=== PATIENT | male | born 1930 | race Caucasian/White ===

== ENCOUNTER → 2016-08-17 | Outpatient (CLI) | payer MEDICARE ==
[~2016-08-17] MED LIST: ADVAIR 250/501 EA INH; ADVAIR 500/501 E1 INH; ADVAIR DISKUS1 DS1 IH; ADVAIR DISKUS1 DSK IH; ALBUTEROL0.09 MG/A2 IH; ALLOPURINOL100 MG PO; ANTIVERT25 MG PO; ARANESP0.06 MG/ML IJ; ASPIR 8181 MG PO; Albuterol Sulfat3 M1 IH; B COMPLETE1 EACH PO; BACTROBAN OINT0.9 GM T; BACTROBAN OINT22 GM T; BAL B-1001 EACH PO; BALANCE B-1001 TA1 PO; CARDURA4 MG PO; CENTRUM SILVER1 EAC3 PO; CENTRUM SILVER1 EACH PO; COREG12.5 MG PO; COREG25 MG PO; COREG3.125 MG PO; COREG6.25 MG PO; COUMADIN2 MG PO; COUMADIN2.5 M1 PO; Coumadin2.5 MG PO; DIGOX0.125 MG PO; DOBUTAMINE250 MG/250 IV; DOXYCYCLINE100 M3 PO; DUONEB 3 MG/3 ML3 M1; DUONEB 3 MG/3 ML3 M1 INH; FEROSUL220 MG/51 PO; FERROUS SU220 MG/52 PO; FLAGYL500 MG PO; FLOMAX0.4 MG PO; FORMOTEROL FUMA; FUROSEMIDE40 MG PO; HECTOROL1 MCG PO; HUMULIN 70/30 710 M1 SC; HUMULIN N100 U/ML SC; HYDROCODONE BIT1 T11 PO; HYDROCODONE BIT1 T20 PO; Ipratropium Brom3 ML IH; Ipratropium Brom3 ML INH; K-DUR 1010 MEQ PO; K-TAB10 MEQ PO; KLOR-CON 1010 ME1 PO; LANOXIN0.125 MG PO; LASIX20 MG PO; LASIX40 MG PO; LECITHIN; LEXAPRO10 MG PO; LIPITOR20 MG PO; LISINOPRIL2.5 MG; LISINOPRIL2.5 MG PO; LOMOTIL 0.025 M1 TAB PO; MULTIPLE VITAMI1 CAP; MULTIPLE VITAMI1 CAP PO; MULTIPLE VITAMI1 TA3 PO; Meclizine25 MG PO; NEURONTIN300 MG PO; NOVAPLUS SOLU-M40 MG IV; NOVOLOG 70/30 M10 ML SQ; PANTOPRAZOLE SO40 MG PO; PERCOCET 325 MG1 TA2 PO; POTASSIUM CHLO10 ME5 PO; PRAVACHOL40 MG PO; PREDNISONE IN5 MG/ML; PREDNISONE5 MG PO; PRELONE15 MG/5 ML PO; PRILOSEC20 M1 PO; PRILOSEC20 MG PO; PROTONIX40 MG PO; PROVENTIL0.09 MG/AC IH; SANTYL250 U/GM T; SONATA10 MG PO; SYMBICORT1 AE1 INH; TAMSULOSIN HCL0.4 MG PO; TYLENOL325 M2 PO; ULORIC40 MG PO; VANCOMYCIN HCL1 GM IV; VIBRAMYCIN100 MG PO; VICODIN 500 MG-1 TAB; VITAMIN B1001 TAB PO; VITAMIN D-32000 UNI1 PO; VITAMIN D-32000 UNIT PO; VITAMIN D2000 IU PO; VITAMIN D32000 UNIT PO; VITAMIN D50000 IU PO; ZYLOPRIM100 MG PO; [UNRECOGNIZED DRUG - OTHER] PO; [UNRECOGNIZED DRUG - OTHER] PO
--- NOTE | ~2016-08-17 | PR ---
[place], [place] PROGRESS NOTE NAME: ARIANNA MUSTAFA [facility] #: [id number] UNIT #: [id number] ROOM: DOCTOR: CARLTON BORJAS DPM BIRTHDATE: [birth year] DOS: 08/17/2016 SUBJECTIVE: The patient is seen for left great toe ulceration as well as fourth left toe ulceration. The patient was seen at [facility] by vascular surgeon. I did receive those notes and unfortunately the patient is not bypassable and with the severity of his arterial sclerosis, it is felt that amputation would only lead to bigger and worse problems. PHYSICAL EXAMINATION: It is noted that the left great toe is stable. There is a stable gangrenous eschar measuring 1.3 x 1.1 x 0.1 cm. Left fourth toe webspace, there is a small gangrenous area at 0.5 x 0.4 x 0.1 cm, again. Both are dry, stable and uninfected at this time. DP, PT pulses are not palpable. The patient has very limited vascular flow in this leg, which was confirmed by his most recent Vascular Surgery Intervention appointment. PLAN: 1. Evaluate. 2. Continue to paint the areas with Betadine. We are going to move the patient into palliative care or we see him and check the areas once monthly. The patient is to call if any problems arise in the meantime, but unfortunately with lack of blood flow to the area, there is not much more we can do for him at this time. CARLTON BORJAS DPM CM:PNTRANS [id number] CARLTON BORJAS DPM 08/18/16 0010 interface
== END | disposition home or self-care (01) ==
LOC: WOUNDCARE 02:42
DX: E11.621 Type 2 diabetes mellitus with foot ulcer (principal); L97.521 Non-pressure chronic ulcer of other part of left foot limited to breakdown of skin; I70.262 Atherosclerosis of native arteries of extremities with gangrene, left leg; E11.69 Type 2 diabetes mellitus with other specified complication; M86.372 Chronic multifocal osteomyelitis, left ankle and foot; E11.52 Type 2 diabetes mellitus with diabetic peripheral angiopathy with gangrene

== ENCOUNTER 2016-08-22 17:00 | Inpatient (IN) | payer MEDICARE ==
[2016-08-22] VITALS (13 sets, daily range): BP systolic 86–140; BP diastolic 30–84
[~2016-08-22] VITALS: Ht 182.9 cm; Wt 66.0 kg
--- NOTE | ~2016-08-22 | DS ---
[place], [place] DISCHARGE SUMMARY NAME: ARIANNA MUSTAFA [facility] #: [id number] UNIT #: [id number] ROOM: 409 DOCTOR: SHIVA HUYNH MD BIRTHDATE: [birth year] DOS: 08/24/2016 DIAGNOSES: 1. Diarrhea from viral gastroenteritis. 2. Hypotension from diarrhea. 3. Chronic atrial fibrillation. 4. Dilated cardiomyopathy without any evidence of congestive heart failure, compensated. 5. Chronic renal failure. 6. Hypokalemia. 7. Anemia of chronic disease. 8. 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 MEDICATIONS ON DISCHARGE: Will be the same as on admission, no new prescriptions were given. HOSPITAL COURSE: This patient is 85 years old, comes in after having multiple diarrheal bowel movements at home. He was found to be hypotensive. After being seen in the Emergency Room, was placed on vigorous IV hydration. His labs did show some slight worsening of his kidney functions from his baseline. He does have chronic renal failure with stage 4. His digoxin and Coreg were discontinued initially. Rest of his medications were continued. The patient did not have any diarrheal bowel movements after he got admitted. After admission, he has had 2 small BMs which is not diarrheal. C. Diff titers were sent and we do not have the results yet. The patient is stable and is not having any complaints. Blood pressures have improved. He is eating well this morning. So the plan will be to discharge him to home and follow up with visiting nurses at home. SHIVA HUYNH MD CM:DISCHARG [id number] SHIVA HUYNH MD 08/24/16 1052 interface
--- NOTE | ~2016-08-22 | PR ---
[place], [place] PROGRESS NOTE NAME: ARIANNA MUTSAFA [facility] #: [id number] UNIT #: [id number] ROOM: 409 DOCTOR: SHIVA HUYNH MD BIRTHDATE: [birth year] DOS: 08/24/2016 He is upset about his dinner yesterday, but he does not have any complaints of diarrhea. He has only had two bowel movements since he got admitted. PHYSICAL EXAMINATION: VITAL SIGNS: Blood pressure is 92/40, pulse of 74, respirations 18, temperature 97.4. LUNGS: Diminished breath sounds, clear. HEART: Irregular. ABDOMEN: Obese, soft, nontender. EXTREMITIES: Without any edema. LABORATORY DATA: This morning, glucose 78, BUN 54, creatinine 1.84, sodium 144, GFR 35, potassium 3.4, chloride 114, and bicarbonate 23. WBC count is 5.2, hemoglobin 9.4. ASSESSMENT AND PLAN: 1. Hypotension from diarrhea, which has resolved. His home medications were on hold. 2. Diarrhea, most likely viral gastroenteritis, which has resolved. C. diff titers were sent. We do not have any results back, but the patient has had no diarrhea and he is not on any antibiotics. 3. Chronic atrial fibrillation on digoxin, Coreg, and Coumadin, which are being continued. 4. Hypokalemia. Supplementation will be ordered. 5. Poorly healing vascular ulcers of the left foot. Continue supportive and symptomatic care at home. We will discharge him today. He does not need any IV fluids and plan is to continue his home medications and have his visiting nurse see him at home. [place], [place] PROGRESS NOTE NAME: ARIANNA MUSTAFA [facility] #: [id number] UNIT #: [id number] ROOM: 409 DOCTOR: SHIVA HUYNH MD BIRTHDATE: [birth year] SHIVA HUYNH MD CM:PNTRANS [id number] SHIVA HUYNH MD 09/27/16 1045 interface
--- NOTE | ~2016-08-22 | WRIGHTHP ---
[place], [place] PATIENT HISTORY AND PHYSICAL EXAM NAME: ARIANNA MUSTAFA [facility] #: [id number] UNIT #: [id number] ROOM: 409 DOCTOR: SHIVA HUYNH MD BIRTHDATE: [birth year] DOS: 08/22/2016 CHIEF COMPLAINT: The patient presents with complaints of diarrhea. HISTORY OF PRESENT ILLNESS: The patient states that he was doing fine until Tuesday evening, he started having multiple episodes of diarrhea, which lasted throughout the weekend and finally, he decided to come in to the Emergency Room on Tuesday. When he arrived, he was quite hypotensive and started on IV fluids and was admitted. He denies having any chest pains or palpitations, does not have any fever or chills, does not have any abdominal pain, any nausea, any emesis. PAST MEDICAL HISTORY: Significant for; 1. Poorly healing wound of the left big toe, fourth and fifth toes from vascular disease. 2. Cardiomyopathy, dilated. 3. Chronic systolic congestive heart failure. 4. Chronic renal failure. 5. Type 2 diabetes mellitus, diet controlled. MEDICATIONS: He is currently on are Symbicort 160 breathing treatments, allopurinol 100, atorvastatin 20, Coreg 3.125 twice a day, vitamin D 2000 mg b.i.d., digoxin 0.125 daily, Lasix 20 daily, iron 220 daily, [place] 5 daily p.r.n., omeprazole 20 daily, potassium 10 daily, warfarin 2 mg daily. SOCIAL HISTORY: Nonsmoker, does not use any alcohol. He lives at home with his . PHYSICAL EXAMINATION: GENERAL: He is awake and alert and oriented, in no distress at all. VITAL SIGNS: Graphic trend shows that he is afebrile this morning, blood pressure is 110/70, pulse of 76, respirations 14. NECK: Supple. No lymph nodes. LUNGS: Diminished breath sounds. CARDIOVASCULAR: Irregular. ABDOMEN: Soft, scaphoid. EXTREMITIES: Without any edema in the right or left, but in the left big toe, fourth toe and fifth toe shows ischemic ulcers. ASSESSMENT AND PLAN: 1. Diarrhea, possibly from a viral syndrome. Clostridium difficile titers have been ordered. The patient is not being placed on any antibiotics. We will wait for the Clostridium difficile titers to come back. 2. Hypotension, possibly from the multiple bouts of diarrhea that he had. He has been placed on IV fluids. 3. Dilated cardiomyopathy with history of chronic congestive heart failure. We will continue to follow him with IV fluids running. We will make sure that he does not go to congestive heart failure. 4. Chronic renal failure, GFR 30, which is his baseline, slow IV hydration, which should improve with slightly and come back, so it is back down to GFR of [place], [place] PATIENT HISTORY AND PHYSICAL EXAM [facility]: [id number] #: [id number] ROOM: [facility] DOCTOR: SHIVA HUYNH MD BIRTHDATE: [birth year] 35 and BUN is 54, creatinine 1.4. White cell count is normal. Ischemic ulcers or Calazime cream will be ordered since he was told there is nothing more that wound clinic can do for him. SHIVA HUYNH MD CM:HISPHYS:PATIENT HISTORY AND PHYSICAL EXAMINATION 0853 [id number] SHIVA HUYNH MD 10/16/16 0836 interface
--- NOTE | ~2016-08-22 | EKG ---
[place], [place] ELECTROCARDIOGRAM REPORT NAME: ARIANNA MUSTAFA UNIT #: [id number] ROOM: 409 DOCTOR: BELINDA VALDIVIA MD BIRTHDATE: [birth year] DOS: 08/22/2016 TIME: 1756 hours. Underlying rhythm with atrial fibrillation with ventricular pacing at 74 beats per minute. An abnormal ECG. No previous tracing is available for comparison. BELINDA VALDIVIA MD CM:EKGRPT:ELECTROCARDIOGRAM REPORT [id number] 31 BELINDA VALDIVIA MD
[~2016-08-22 17:00] MED LIST changes: -ARANESP0.06 MG/ML IJ; -B COMPLETE1 EACH PO; -CENTRUM SILVER1 EAC3 PO; -DOXYCYCLINE100 M3 PO; -FEROSUL220 MG/51 PO; -FORMOTEROL FUMA; -Ipratropium Brom3 ML IH; -LIPITOR20 MG PO; -NEURONTIN300 MG PO; -PERCOCET 325 MG1 TA2 PO; -POTASSIUM CHLO10 ME5 PO; -PRILOSEC20 M1 PO; -SYMBICORT1 AE1 INH; -TAMSULOSIN HCL0.4 MG PO; -TYLENOL325 M2 PO; -VITAMIN D-32000 UNIT PO
[2016-08-22 18:02] LABS: BASO % 0.3 % (0.0-1.0); EOS # 0.1 10*3/uL (0.0-0.4); EOS % 1.9 % (1.0-4.0); HEMATOCRIT 30.5 % (42.0-52.0); HEMOGLOBIN 9.6 g/dl (14.0-18.0); LYMPH # 1.3 10*3/uL (1.3-4.4); LYMPH % 18.5 % (27.0-41.0); MEAN CELL VOLUME 96.8 fl (80.0-94.0); MEAN CORPUSCULAR HGB 30.5 pg (27.0-31.0); MEAN CORPUSCULAR HGB CONC 31.5 g/dl (33.0-37.0); MEAN PLATELET VOLUME 9.8 fl (9.6-12.3); MONO # 0.9 10*3/uL (0.1-1.0); MONO % 12.8 % (3.0-9.0); NEUT # 4.5 10*3/uL (2.3-7.9); NEUT % 66.2 % (47.0-73.0); PLATELET COUNT AUTOMATED 143 10*3/uL (130-400); RED BLOOD COUNT 3.15 10*6/uL (4.50-5.90); RED CELL DISTRI WIDTH 18.3 % (0-14.5); WHITE BLOOD COUNT 6.8 10*3/uL (4.8-10.8)
[2016-08-22 18:17] LABS: INTERNATIONAL NORM RATIO 2.5 (2.0-3.5)
[2016-08-22 18:22] LABS: ALBUMIN 2.5 gm/dl (3.1-4.5); BILIRUBIN, TOTAL 0.3 mg/dl (0.2-1.0); MAGNESIUM 1.6 mg/dL (1.5-2.1); POTASSIUM 3.8 mmol/L (3.5-5.1); TOTAL PROTEIN 5.6 gm/dL (6.4-8.2); TROPONIN I 0.052 ng/ml (<0.5)
[2016-08-22] MEDS ORDERED: SYMBICORT1 AE1 INH (19:20)
[2016-08-22] MEDS ORDERED: PRILOSEC20 M1 PO ×2 (19:20→19:21)
[2016-08-22] MEDS ORDERED: Meclizine25 MG PO (19:22)
[2016-08-22] MEDS ORDERED: COREG3.125 MG PO (19:22)
[2016-08-22] MEDS ORDERED: VITAMIN D-32000 UNIT PO (19:23)
[2016-08-22] MEDS ORDERED: COUMADIN2 MG PO (19:23)
[2016-08-22] MEDS ORDERED: CENTRUM SILVER1 EACH PO (19:23)
[2016-08-22] MEDS ORDERED: HYDROCODONE BIT1 T11 PO (19:24)
[2016-08-22] MEDS ORDERED: Ipratropium Brom3 ML IH (19:24)
[2016-08-22] MEDS ORDERED: LASIX20 MG PO (19:24)
[2016-08-22] MEDS ORDERED: LANOXIN0.125 MG PO (19:25)
[2016-08-22] MEDS ORDERED: ZYLOPRIM100 MG PO (19:25)
[2016-08-22] MEDS ORDERED: LIPITOR20 MG PO (19:25)
[2016-08-22] MEDS ORDERED: FEROSUL220 MG/51 PO (19:26)
[2016-08-22] MEDS ORDERED: B COMPLETE1 EACH PO (19:26)
[2016-08-22] MEDS ORDERED: POTASSIUM CHLO10 ME5 PO (19:26)
[2016-08-22 20:29] LABS: BILIRUBIN NEGATIVE (NEGATIVE); BLOOD NEGATIVE (NEGATIVE); CLARITY CLEAR (CLEAR); COLOR YELLOW (YELLOW); GLUCOSE NEGATIVE (NEGATIVE); KETONE NEGATIVE (NEGATIVE); LEUKO ESTERASE NEGATIVE (NEGATIVE); NITRITE NEGATIVE (NEGATIVE); PH 5.5 (5.0-9.0); PROTEIN NEGATIVE (NEGATIVE); SPECIFIC GRAVITY 1.015 (1.005-1.030); UROBILINOGEN 0.2 E.U./dl (0.2-1.0)
[2016-08-22 20:38] LABS: RBC 0-2 rbc/hpf (0-2)
[2016-08-22 20:39] LABS: URINE REFLEX COMMENT NO (NO)
[2016-08-23 07:33] LABS: BASO % 0.2 % (0.0-1.0); EOS # 0.2 10*3/uL (0.0-0.4); EOS % 3.9 % (1.0-4.0); HEMATOCRIT 29.1 % (42.0-52.0); HEMOGLOBIN 9.4 g/dl (14.0-18.0); LYMPH # 1.4 10*3/uL (1.3-4.4); LYMPH % 27.2 % (27.0-41.0); MEAN CELL VOLUME 95.4 fl (80.0-94.0); MEAN CORPUSCULAR HGB 30.8 pg (27.0-31.0); MEAN CORPUSCULAR HGB CONC 32.3 g/dl (33.0-37.0); MEAN PLATELET VOLUME 9.9 fl (9.6-12.3); MONO # 0.7 10*3/uL (0.1-1.0); MONO % 13.5 % (3.0-9.0); NEUT # 2.9 10*3/uL (2.3-7.9); NEUT % 54.8 % (47.0-73.0); PLATELET COUNT AUTOMATED 136 10*3/uL (130-400); RED BLOOD COUNT 3.05 10*6/uL (4.50-5.90); RED CELL DISTRI WIDTH 18.5 % (0-14.5); WHITE BLOOD COUNT 5.2 10*3/uL (4.8-10.8)
[2016-08-23 07:42] LABS: POTASSIUM 3.4 mmol/L (3.5-5.1)
[2016-08-23 08:00] VITALS: BP 138/76
[2016-08-23 12:00] VITALS: BP 118/50
[2016-08-23 16:00] VITALS: BP 118/55
[2016-08-23 20:00] VITALS: BP 119/64
[2016-08-24] VITALS: BP 93/40
[2016-08-24 08:00] VITALS: BP 92/40
[2016-09-18] MEDS ORDERED: SYMBICORT1 AE1 INH (06:26)
[2016-09-18] MEDS ORDERED: PRILOSEC20 M1 PO (06:26)
[2016-09-18] MEDS ORDERED: NEURONTIN300 MG PO (06:27)
[2016-09-18] MEDS ORDERED: TAMSULOSIN HCL0.4 MG PO (06:27)
[2016-09-18] MEDS ORDERED: Meclizine25 MG PO (06:28)
[2016-09-18] MEDS ORDERED: COUMADIN2 MG PO (06:29)
[2016-09-18] MEDS ORDERED: COREG3.125 MG PO (06:29)
[2016-09-18] MEDS ORDERED: CENTRUM SILVER1 EAC3 PO (06:30)
[2016-09-18] MEDS ORDERED: VITAMIN D-32000 UNI1 PO (06:30)
[2016-09-18] MEDS ORDERED: LASIX40 MG PO (06:30)
[2016-09-18] MEDS ORDERED: PERCOCET 325 MG1 TA2 PO (06:31)
[2016-09-18] MEDS ORDERED: DUONEB 3 MG/3 ML3 M1 INH (06:32)
[2016-09-18] MEDS ORDERED: LIPITOR20 MG PO (06:34)
[2016-09-18] MEDS ORDERED: ALLOPURINOL100 MG PO (06:34)
[2016-09-18] MEDS ORDERED: BAL B-1001 EACH PO (06:35)
[2016-09-18] MEDS ORDERED: KLOR-CON 1010 ME1 PO (06:35)
[2016-09-18] MEDS ORDERED: LANOXIN0.125 MG PO (06:35)
[2016-09-18] MEDS ORDERED: FERROUS SU220 MG/52 PO (06:36)
[2016-09-27] MEDS ORDERED: DOXYCYCLINE100 M3 PO (20:41)
[2016-09-29] MEDS ORDERED: DUONEB 3 MG/3 ML3 M1 INH (20:42)
[2016-09-29] MEDS ORDERED: FORMOTEROL FUMA (20:43)
[2016-09-29] MEDS ORDERED: TYLENOL325 M2 PO (20:46)
[2016-09-29] MEDS ORDERED: ARANESP0.06 MG/ML IJ (20:51)
[2016-10-03] MEDS ORDERED: DOXYCYCLINE100 M3 PO (08:16)
== END 2016-08-24 11:50 | disposition home health service (06) | DRG 391 ==
LOC: ED 17:00 → 4E 20:52 → EDHOLD 20:52 → 4E 21:42
PROVIDERS: Internal Medicine; Student in an Organized Health Care Education/Training Program
DX: A08.4 Viral intestinal infection, unspecified (principal); N17.0 Acute kidney failure with tubular necrosis; N18.4 Chronic kidney disease, stage 4 (severe); I42.0 Dilated cardiomyopathy; I50.22 Chronic systolic (congestive) heart failure; E11.22 Type 2 diabetes mellitus with diabetic chronic kidney disease; I95.9 Hypotension, unspecified; I48.2 Chronic atrial fibrillation; Z68.1 Body mass index [BMI] 19.9 or less, adult; E87.6 Hypokalemia; D63.8 Anemia in other chronic diseases classified elsewhere; L97.529 Non-pressure chronic ulcer of other part of left foot with unspecified severity; M10.9 Gout, unspecified; Z88.0 Allergy status to penicillin; Z88.8 Allergy status to other drugs, medicaments and biological substances; Z79.01 Long term (current) use of anticoagulants; Z95.0 Presence of cardiac pacemaker; Z82.3 Family history of stroke; Z80.9 Family history of malignant neoplasm, unspecified; Z98.61 Coronary angioplasty status; Z98.890 Other specified postprocedural states

== ENCOUNTER → 2016-08-24 | Outpatient (CLI) | payer MEDICARE ==
[~2016-08-24] MED LIST changes: +ARANESP0.06 MG/ML IJ; +B COMPLETE1 EACH PO; +CENTRUM SILVER1 EAC3 PO; +DOXYCYCLINE100 M3 PO; +FEROSUL220 MG/51 PO; +FORMOTEROL FUMA; +Ipratropium Brom3 ML IH; +LIPITOR20 MG PO; +NEURONTIN300 MG PO; +PERCOCET 325 MG1 TA2 PO; +POTASSIUM CHLO10 ME5 PO; +PRILOSEC20 M1 PO; +SYMBICORT1 AE1 INH; +TAMSULOSIN HCL0.4 MG PO; +TYLENOL325 M2 PO; +VITAMIN D-32000 UNIT PO
[2016-08-24 11:50] VITALS: BP 135/74
== END | disposition home or self-care (01) ==
LOC: INJECTION 10:30
DX: N18.3 Chronic kidney disease, stage 3 (moderate) (principal); D64.9 Anemia, unspecified

== ENCOUNTER 2016-10-23 05:23 | Inpatient (IN) | payer MEDICARE ==
[2016-10-23] VITALS (7 sets, daily range): BP systolic 92–153; BP diastolic 40–68
[~2016-10-23] VITALS: Ht 182.8 cm; Wt 61.2 kg
--- NOTE | ~2016-10-23 | PR ---
[place], [place] PROGRESS NOTE NAME[facility] [id number] UNIT #: [id number] ROOM: 401 DOCTOR: JAYLON MUÑOZ MD BIRTHDATE: [birth year] DOS: 10/25/2016 SUBJECTIVE: The patient awake, alert, more comfortable, not agitated. Had no significant complaints today. OBJECTIVE: VITAL SIGNS: Blood pressure 122/52, heart rate 74 beats per minute, breathing 18 times per minute, temperature 98 degrees Fahrenheit, going up to 100.5 degrees Fahrenheit. GENERAL APPEARANCE: The patient is alert and oriented x 3, in no visible distress. Generalized weakness. HEENT AND NECK: Exam within normal limits. CARDIOVASCULAR SYSTEM: Heart rate is regular in rate and rhythm. S1 and S2 normally audible. LUNGS: Clear to auscultation. ABDOMEN: Soft, nontender. No obvious organomegaly. Bowel sounds are present. EXTREMITIES: Without significant cyanosis or edema. IMPRESSION: 1. The patient has chronic bilateral foot ulcers, being followed by Wound Care with generalized weakness and disability. 2. Adult failure to thrive, generalized weakness and disability. The patient is working with physical therapy and his says she would like to take him home rather than sending him to [facility] facility. The patient waiting for physical therapy to work with him, and if he does well, he can be discharged to home tomorrow. The patient is a good candidate for usp placement because of his generalized disability. 3. Exacerbation of chronic obstructive pulmonary disease, shortness of breath and hypoxemia, improved with treatment. He is not short of breath anymore. 4. Chest pains from uncertain etiology. The patient was seen by Cardiology. No further ischemic workup recommended. 5. Chronic kidney disease, stage 3A, stable. 6. The patient on Coumadin. Pro time is being monitored. INR was 1.8 today. We will continue to follow. 7. Chronic gouty arthritis, asymptomatic. The patient is taking allopurinol. 8. Mixed hyperlipidemia, being treated with atorvastatin. 9. Left great toe wound, which is chronic. The patient being followed by Wound Care. [place], [place] PROGRESS NOTE NAME: [facility] [id number] UNIT #: [id number] ROOM: 401 DOCTOR: JAYLON MUÑOZ MD BIRTHDATE: [birth year] JAYLON MUÑOZ MD CM:EMIR [id number] JAYLON MUÑOZ MD 10/25/16 1634 interface
--- NOTE | ~2016-10-23 | DS ---
[place], [place] DISCHARGE SUMMARY NAME: ARIANNA MUSTAFA [facility] #: [id number] UNIT #: [id number] ROOM: 424 DOCTOR: JAYLON MUÑOZ MD BIRTHDATE: [birth year] DOS: 10/28/2016 DISCHARGE DIAGNOSES: 1. Adult failure to thrive. 2. Advanced chronic obstructive pulmonary disease with oxygen dependence and recurrent episodes of hypoxemia. 3. Exacerbation of chronic obstructive pulmonary disease. 4. Chest pain is evaluated by Cardiology, no further ischemia workup was recommended. 5. Chronic kidney disease stage 3A, stable. 6. Chronic gouty arthritis, asymptomatic. 7. Left toe chronic wound is being followed by wound care. 8. Mixed hyperlipidemia. 9. Echocardiogram showing concentric left ventricular hypertrophy with global hypokinesis and decreased left ventricular ejection fraction to only 20%. 10. Type 2 diabetes mellitus. The patient's blood sugars were monitored and treated. 11. Systolic type congestive heart failure compensated. 12. The patient is admitted to [facility] one day after he was discharged to home from senior living. The patient was brought in by his who is taking care of him with increased shortness of breath. 13. Exacerbation of chronic obstructive pulmonary disease treated with corticosteroids, oxygen, antibiotics. Dr. Bowen was also consulted and just on the day that he was being discharged to home he developed hypoxemia, increased shortness of breath. The patient was found to be too sick to be transferred back to home, discharge back to home or even to the senior living, so he was fortunately taken by LTAC facility [facility] where he is going under care of Dr. Bowen who will follow him on daily basis and try to get him stabilized prior to discharge to home. 14. Old age, multiple medical problems and advanced failure to thrive with poor assisted prognosis. Unless the patient chooses to go on end of life care, recurrent admissions to the hospital are anticipated. 15. Advanced failure to thrive, we kept him on physical therapy. 16. Cardiology reevaluate the patient for chest pains, cardiac enzymes were checked, no further ischemic workup was recommended. Echocardiogram was performed, results as mentioned above. 17. Chronic kidney disease stage 3A, stable. 18. Chronic left great toe wound followed by wound care center where he gets treatment. 19. Mixed hyperlipidemia treated with atorvastatin. LABORATORY DATA: Results are still pending. BUN and creatinine 37 and 1.5. INR 1.8 and improving towards therapeutic range after patient was given extra Coumadin. Stool for C difficile was negative. Echocardiogram results were mentioned above. DISCHARGE MANAGEMENT: Solu-Medrol 20 mg IV 3 times a day, allopurinol 100 mg daily, potassium chloride 10 mEq daily, furosemide 40 mg a day, omeprazole 20 mg a day, gabapentin 300 mg at bedtime, Coreg 3.125 mg b.i.d., Lipitor 20 mg a day, he is on Dulera twice a day b.i.d., Coumadin 2 mg daily, meclizine 25 mg [place], [place] DISCHARGE SUMMARY NAME: ARIANNA MUSTAFA UNIT #: [id number] ROOM: [facility] DOCTOR: TONI LOONEY,JAYLON Keen BIRTHDATE: [birth year] b.i.d., digoxin 125 mcg daily, DuoNeb q.i.d., the patient on IV vancomycin 750 mg every 1600 hours and I will 1 g daily, also IV azithromycin 500 mg a day, oxygen titrated keep pulse ox between 90%-96%. Consult physical therapy and wound care. JAYLON MUÑOZ MD DONIS FRANKEL DPM CM:SASHAARG [id number] JAYLON MUÑOZ MD 10/28/162028 interface
--- NOTE | ~2016-10-23 | CON ---
[place], [place] REPORT OF CONSULTATION NAME: [facility]: [id number] UNIT #: [id number] ROOM: 401 DOCTOR: KARYN LOONEYSANDRA BIRTHDATE: [birth year] DOS: 10/24/2016 REQUESTING PHYSICIAN: Dr. Everton Elder, Cardiology. REASON FOR CONSULTATION: Elevated troponin. ASSESSMENT: 1. Current presentation with inability to walk. 2. Apparent fall with possible syncope 2 days ago. 3. Recent discharge from the hospital. 4. Severe anemia. 5. Known history of cardiomyopathy with automatic implantable cardioverter-defibrillator placement. 6. No cardiac complaint of chest pain, chest pressure or symptomatic palpitation. 7. Coronary artery disease with previously placed stent in 2009. No record available to me at this time. 8. Diabetes. 9. Hypertension. 10. Hyperlipidemia. 11. Previous history of tobacco abuse. 12. Atrial fibrillation, on Coumadin. PLAN: 1. Check D-dimer. 2. Repeat echocardiogram. 3. Continue current medication of Coreg and ORTEGA inhibitors and Lasix. 4. Continue Coumadin for target INR between 2 and 3. 5. Obtain old record from Dr. Davis's office. 6. Severe anemia, workup per PCP. 7. Check CPK-MB x 2 more sets along with troponin. 8. Lower extremity severe peripheral vascular disease, management per Vascular Surgery/PCP. HISTORY AND PHYSICAL: The patient is a pleasant 86-year-old gentleman, known to our practice, was cared for by Dr. Davis on patient willing to change to [facility]. He presented to the hospital after a fall while he was in the bathroom. The patient could not stand up due to weakness in both lower extremities. The patient is not sure if he passed out or not. Apparently, his called the ambulance and the patient was brought into the Emergency Room. Prior to that, the patient denies any chest pain, chest pressure, heaviness, or tightness. No jaw pain, left arm pain or back pain. Never had any symptomatic palpitation or associated dizziness, lightheadedness, or near syncope. The patient feels extremely weak. He has significant pain in both lower extremities due to ulcer, especially in the left lower extremity. No fever, no chills, no night sweats. The patient overall maintains a good appetite. He reports significant weight loss from 248 pounds to 130 pounds over 2 years. There is severe anemia, but no bright red blood per rectum or tarry stools. No fever, no chills, no night sweats. [place], [place] REPORT OF CONSULTATION NAME: ARIANNA MUSTAFA UNIT #: [id number] ROOM: 401 DOCTOR: SANDRA BOSS MD BIRTHDATE: [birth year] The patient reported significant weakness, tiredness and muscle aches. PAST MEDICAL HISTORY: As detailed in my assessment. SOCIAL HISTORY: The patient denies any current tobacco, alcohol or illicit drug abuse. The patient did smoke, but quit about 8 years ago. FAMILY HISTORY: There is no reported early family history of heart disease per patient. CURRENT MEDICATIONS: Allopurinol, potassium, Lasix, Prilosec, Neurontin, Coreg, Lipitor, Coumadin, Flomax, Antivert, digoxin, DuoNeb, and Tylenol. ALLERGIES: THE PATIENT IS ALLERGIC TO PENICILLIN AND PREDNISONE. REVIEW OF SYSTEMS: The patient currently denies any headache, diplopia, or blurry vision. No fever, no chills, no night sweats. No abdominal pain. No bright red blood per rectum or tarry stools. The patient admits to joint pain and muscular pain. No anxiety, but does report depression. ____ urine incontinent. No dysuria. No skin rash. Review of other systems has been negative. PHYSICAL EXAMINATION: GENERAL: The patient is alert, oriented x3, quite pleasant, completely flat in bed, does not appear in distress, slightly depressed. VITAL SIGNS: The patient had blood pressure 102/76, heart rate of 76, respiratory rate of 20, temperature of 97.6. HEENT: Extraocular muscles are intact. Pupils are equal, round and reactive to light. Significant pallor in both conjunctivae. Throat: No petechiae. NECK: Good upstroke. Unable to appreciate any bruit, no lymphadenopathy, no thyromegaly. HEART: S1, S2 with a faint systolic ejection murmur and holosystolic murmur at left sternal border, loud P2. No rub, no retrosternal heave. CHEST AND BACK: No deformities. LUNGS: Decreased air movement, but no ramiro wheezing or rales. ABDOMEN: Soft, distended, slightly tender, but no masses, no bruits. LOWER EXTREMITIES: There is no significant edema, both under Band-Aid due to ulcers. NEUROLOGIC: Grossly nonfocal. SKIN: No significant rash. LABORATORY DATA: White count 7.6, hemoglobin 7.9, initially it was 9.0. Potassium of 4.2, creatinine 1.6, GFR 40%. Troponin 0.72, subsequent 0.58 and then 0.062. ProBNP 18,073. [place], [place] REPORT OF CONSULTATION NAME: ARIANNA MUSTAFA UNIT #: [id number] ROOM: 401 DOCTOR: SANDRA BOSS MD BIRTHDATE: [birth year] SANDRA BOSS MD CM:CONSTR:REPORT OF CONSULTATION 1113 10/25/16 0121 interface
--- NOTE | ~2016-10-23 | PR ---
[place], [place] PROGRESS NOTE NAME: ARIANNA MUSTAFA [facility] #: [id number] UNIT #: [id number] ROOM: 401 DOCTOR: TONI LOONEYJAYLON Keen BIRTHDATE: [birth year] DOS: 10/27/2016 SUBJECTIVE: An 86-year-old gentleman with an episode of hypoxemia and wheezing this morning. The patient was put on oxygen with mask this morning by nursing staff. OBJECTIVE: GENERAL APPEARANCE: The patient is alert and oriented x 3, in no visible distress, except for generalized weakness. VITAL SIGNS: Blood pressure 113/78, heart rate 92 beats per minute, breathing 20 times per minute, temperature 98.7 degrees Fahrenheit. HEENT AND NECK: Exam within normal limits. CARDIOVASCULAR SYSTEM: Heart rate is regular in rate and rhythm. S1 and S2 normally audible. LUNGS: Mild expiratory wheezing . ABDOMEN: Soft, nontender. No obvious organomegaly. Bowel sounds are present. EXTREMITIES: Chronic foot ulcers. IMPRESSION: 1. The patient with hypoxemic episode this morning, which required breathing treatment and oxygen by facemask. I was planning to discharge him to home today, but apparently this is not a good option. This is already discussed with patient's who is insisting on taking him home. The patient apparently is not even a good candidate to go to long term facility for rehab, but he would be a better candidate to go to an LTAC facility where he can be monitored closely on daily basis. If this is not allowed by the insurance then he would be a good candidate for hospice consult. This was discussed with social media strategist today and also with Dr. Bowen who has been consulted for shortness of breath. 2. Adult failure to thrive, generalized weakness and disability, the patient working with physical therapy. 3. Exacerbation of chronic obstructive pulmonary disease being treated with increased hypoxemia. I will keep him on corticosteroids, nebulizer treatments and antibiotic. 4. Chest pains from uncertain etiology, worked up by Cardiology, no further ischemia workup recommended. 5. Chronic kidney disease stage 3A, stable. 6. Chronic gouty arthritis, asymptomatic. 7. Left toe wound which is chronic, being followed by wound care. 8. Mixed hyperlipidemia, treated with atorvastatin. [place], [place] PROGRESS NOTE NAME: [facility] [id number] UNIT #: [id number] ROOM: [facility] DOCTOR: JAYLON MUÑOZ MD BIRTHDATE: [birth year] JAYLON MUÑOZ MD CM:PNTRANS 1030 1231 JAYLON MUÑOZ MD 10/27/16 1231 interface
--- NOTE | ~2016-10-23 | PR ---
[place], [place] PROGRESS NOTE NAME: ARIANNA MUSTAFA [facility] #: [id number] UNIT #: [id number] ROOM: 401 DOCTOR: JAYLON MUÑOZ MD BIRTHDATE: [birth year] DOS: 10/23/2016 SUBJECTIVE: The patient only complaining of some tingling in his feet and some pain, otherwise asymptomatic, but generalized weakness. OBJECTIVE: GENERAL APPEARANCE: The patient is alert and oriented x 3, in no visible distress. VITAL SIGNS: Blood pressure 107/65, heart rate 82 beats per minute, breathing 20 times per minute, temperature 98.7 degrees Fahrenheit. HEENT AND NECK: Extraocular movements are intact. Sclerae are anicteric. Oral mucosa is moist and clean. No obvious facial weakness. Neck is supple without any lymphadenopathy. No thyromegaly. No JVD. No carotid arterial bruits. LUNGS: Clear to auscultation. No wheezing. No rhonchi. CARDIOVASCULAR SYSTEM: Heart rate is regular in rate and rhythm. S1 and S2 normally audible. No significant murmur or any other abnormal cardiac sounds. ABDOMEN: Soft, nontender. No obvious organomegaly. Bowel sounds are present. No obvious herniation. EXTREMITIES: Without significant cyanosis or edema. Warm to touch. Bilateral foot ulcers. CENTRAL NERVOUS SYSTEM: Alert and oriented x 3. Cranial nerves II-XII are intact. Speech is normal. The patient is able to move all extremities. Normal muscle strength. Deep tendon reflexes are equal on both sides. Plantars were downgoing. IMPRESSION AND PLAN: Stool for Clostridium difficile toxin has been negative. The patient on Coumadin with reducing INR. I will give him extra Coumadin. JAYLON MUÑOZ MD CM:PNTRANS 1944 7 JAYLON MUÑOZ MD 10/27/16307 interface
--- NOTE | ~2016-10-23 | WRIGHTHP ---
[place], [place] PATIENT HISTORY AND PHYSICAL EXAM NAME: ARIANNA MUSTAFA [facility] #: [id number] UNIT #: [id number] ROOM: 401 DOCTOR: JAYLON MUÑOZ MD BIRTHDATE: [birth year] DOS: 10/23/2016 HISTORY OF PRESENT ILLNESS: 1. The patient is an 86-year-old gentleman with a past medical history of poorly healing wound of the left great toe and severe peripheral vascular disease, inoperable. 2. History of chronic kidney disease stage 3. 3. 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 4. Type 2 diabetes mellitus. 5. COPD. HOME MEDICATIONS: Symbicort, Prilosec, Coreg, Flomax, Coumadin, vitamin D, Percocet, Lipitor, allopurinol, digoxin, Aranesp. The patient presented to Emergency Department, brought over from home by family the day [facility] with increased shortness of breath, hypoxemia and some chest pains. After admission, patient stated he is asymptomatic, no complaint of shortness of breath. No GI or urinary symptoms. REVIEW OF SYSTEMS: LUNGS: No shortness of breath or wheezing. GASTROINTESTINAL: No nausea, vomiting, diarrhea or constipation. CARDIOVASCULAR: Complains of some chest pains at home. SOCIAL HISTORY: , lives at home. Denies smoking cigarettes, alcohol and drug abuse. PAST MEDICAL HISTORY: The patient has his both feet wrapped. The patient has a history of chronic left great toe ulcer. He also apparently has heel ulcer now. The patient has history of COPD, benign essential hypertension, type 2 diabetes mellitus. History of coronary artery disease of [place] vessels and NE. Mixed hyperlipidemia. The patient with history of pacemaker defibrillator implanted in 2009. History of deep venous thrombosis and Meniere's disease. FAMILY HISTORY: Noncontributory. ALLERGIES: KNOWN ALLERGIES TO PENICILLIN, WHICH CAUSES HIVES AND ALSO ALLERGY TO PREDNISONE. PHYSICAL EXAMINATION: GENERAL: Awake, alert, oriented, but a poor historian, in no visible distress, but looking very weak. VITAL SIGNS: Blood pressure 103/68, heart rate 81 beats per minute, breathing 20 times per minute, temperature 99.1 degrees Fahrenheit. HEENT AND NECK: Extraocular movements are intact. Sclerae are anicteric. Oral mucosa is moist and clean. No obvious facial weakness. Neck is supple without any lymphadenopathy. No thyromegaly. No JVD. No carotid arterial bruits. LUNGS: Clear to auscultation. No wheezing. No rhonchi. CARDIOVASCULAR SYSTEM: Heart rate is regular in rate and rhythm. S1 and S2 normally audible. No significant murmur or any other abnormal cardiac sounds. ABDOMEN: Soft, nontender. No obvious organomegaly. Bowel sounds are present. [place], [place] PATIENT HISTORY AND PHYSICAL EXAM [facility] [id number] UN[facility] #: [id number] ROOM: [facility] DOCTOR: JAYLON MUÑOZ MD BIRTHDATE: [birth year] No obvious herniation. EXTREMITIES: Without significant cyanosis or edema. Warm to touch. CENTRAL NERVOUS SYSTEM: Alert and oriented x3. Cranial nerves II-XII are intact. Speech is normal. The patient is able to move all extremities. Normal muscle strength. Deep tendon reflexes are equal on both sides. Plantars were downgoing. Generalized weakness. LABORATORY DATA: BUN and creatinine 37 and 1.58. Lactic acid level was normal. INR therapeutic at 2.3. Hemoglobin 9. IMPRESSION: 1. The patient with adult failure to thrive and advanced disability was just discharged back to home after rehabilitation at the nursing facility a day prior to admission. 2. Exacerbation of chronic obstructive pulmonary disease and acute on chronic systolic type congestive heart failure to be treated with oxygen, diuresis, serum electrolytes will be monitored daily and Cardiology has been consulted. 3. Chest pains from uncertain etiology. I am checking cardiac enzymes and Cardiology to decide about further workup. 4. Chronic foot ulcers to be treated by wound care who has been consulted. Dr. Wren has been consulted. 5. Chronic kidney disease stage 3A. BUN and creatinine and serum electrolytes have been monitored. 6. The patient on Coumadin. Protime should be monitored. The patient is therapeutic at the present time. 7. Chronic gouty arthritis. The patient continued on allopurinol. 8. Mixed hyperlipidemia being treated with atorvastatin. 9. Coumadin therapeutic. We will follow protime, will adjust treatment only if necessary. 10. Left great toe has a chronic wound and also has a ____ heel which will be followed by the [facility] by Dr. Columba Wren. JAYLON MUÑOZ MD CM:HISPHYS:PATIENT HISTORY AND PHYSICAL EXAMINATION [id number] JAYLON MUÑOZ MD 10/25/16 0450 interface
--- NOTE | ~2016-10-23 | CON ---
[place], [place] REPORT OF CONSULTATION NAME: ARIANNA MUSTAFA [facility] #: [id number] UNIT #: [id number] ROOM: 401 DOCTOR: JULITO OliviaWESLEY BIRTHDATE: [birth year] DOS: 10/25/2016 WOUND CARE CONSULTATION SUBJECTIVE: The patient is an 86-year-old male with multiple medical problems that includes severe peripheral vascular disease with ischemic ulcerations of the left great toe as well as the webspace between the fourth and fifth digits on the left foot, who has been following up with Dr. Carlson in the [facility]. He does have an appointment with her tomorrow, but has not been seen in our clinic for quite some time due to his repetitive admissions to the hospital for his multiple comorbid conditions. He has had Vascular consultation. According to the records, there are no further interventions that can be done for him at this time. A conservative approach is being used for him and has had relatively stable gangrenous changes of the left great toe and the webspace of the fourth toe. He has had multiple medical problems with advanced failure to thrive, severe debility, history of acute respiratory failure and severe congestive heart failure who was [facility] to go home and apparently returned shortly afterward within a day or two of complaints of increasing shortness of breath. He was noted to be hypoxic upon arrival and was admitted for that. PAST MEDICAL HISTORY: Significant for multiple medical problems and include a history of metabolic encephalopathy, history of pneumonia, sepsis, history of gastroenteritis, osteomyelitis of the toe, acute azotemia, chronic atrial fib, chronic anemia, chronic kidney disease, chronic contusion of the left hip, contusion the left shoulder, dehydration, dyspnea, fall, fracture of the thumb, gout, hyperglycemia, hypoglycemia, inability to ambulate due to ankle or foot, malaise and fatigue, multiple contusions, multiple falls, pulmonary vascular congestion, supratherapeutic INR, urinary retention. He is status post pacemaker and defibrillator, has had a history of TIA and stent placement. He is status post hemorrhoidectomy, cataract surgery, T and A, appendectomy. SOCIAL HISTORY: He does not smoke or drink. FAMILY HISTORY: Significant for CVA and cancer. CURRENT MEDICATIONS: As follows: Zyloprim 100 p.o. daily, Micro-K 10 mEq daily, Lasix 40 daily, Prilosec 20 daily, Dulera 200 mcg b.i.d., Neurontin 300 at bedtime, Coreg 3.125 b.i.d., Lipitor 20 at bedtime, warfarin 2 mg daily, Flomax 0.4 b.i.d., Antivert 25 mg b.i.d., Lanoxin 125 mcg daily, albuterol q. 6 hours p.r.n. According to his , the patient complains of continued pain of the left foot, specifically at the pinky toe, but not so much of the great toe. He does complain of pain at the left fifth pinky toe. PHYSICAL EXAMINATION: He has new wounds on his right heel with some ischemic changes in between the web spaces of the toes on the right foot, which is new. The heel ulcer is unstageable at this point. It is fairly dry and an eschar. It did have a foam dressing, which was quite adherent to it, so this had to be [place], [place] REPORT OF CONSULTATION NAME: ARIANNA MUSTAFA UNIT #: [id number] ROOM: [facility] DOCTOR: JULITO Olivia,WESLEY BIRTHDATE: [birth year] removed by cutting the foam in order to remove this dressing as it was so embedded and stuck to the wound base. He also has some ischemic changes of the medial aspect of the forefoot as well. It does not appear to be purulent. It is not acutely cellulitic, but it is still somewhat tender. His peripheral pulses are difficult to feel and he has no edema. The left great toe wound appears about the same to me. He also has an area in between the fourth and fifth webspace of the left foot and that does seem slightly more tender than before as well. Once again peripheral pulses are difficult to feel. VITAL SIGNS: His temperature today was 98, pulse of 77, blood pressure is 118/67. LABORATORY DATA: His labs show a hemoglobin of 7.9, hematocrit of 25.4. His INR is 1.8. BUN is 41, creatinine 1.6. Chest x-ray, no significant change. ASSESSMENT AND PLAN: Ischemic ulcerations of the left foot as well as new pressure ulcer of the right heel in a patient with severe peripheral vascular disease and severe debility with multiple medical problems. I would continue to keep these wounds dry as possible. I would use a nonadherent dressing such as Telfa instead of the foam as the foam was sticking to the wound and creating trauma, so those orders have been changed, would encourage offloading as much as possible to the right heel and left heel as well by floating the legs on pillows, cushions, etc. This is Dr. Carlson's patient, she may see him tomorrow. WESLEY VILA MD CM:CONSTR:REPORT OF CONSULTATION 1635 10/26/16 0827 interface
--- NOTE | ~2016-10-23 | PR ---
[place], [place] PROGRESS NOTE NAME: ARIANNA MUSTAFA [facility] #: [id number] UNIT #: [id number] ROOM: 424 DOCTOR: ERIKA FIGUEROA MD BIRTHDATE: [birth year] DOS: 10/28/2016 PULMONARY FOLLOWUP SUBJECTIVE: He has been noted with increased chest congestion with minimal sputum expectoration. Most the cough has been noted dry and non congested. He was continued on oxygen supplementation this morning, nasal cannula. Complaining of general fatigue. Denies symptoms of chest pain or any abdominal pain. OBJECTIVE: VITAL SIGNS: For the patient which has been recorded showed the temperature noted as normal, respiratory rate 20, heart rate 74, blood pressure ____. The pulse oxygen saturation of the patient recorded on 3 liters canula 98% saturation. HEENT: Showed no acute change. NECK: Supple. CARDIOVASCULAR: S1, S2 is audible. LUNGS: The patient was noted without any wheezing or crackles. Left lung were noted essentially clear. Right lung was noted with crackles in the mid portion of the lung with decreased breath sounds in the right lower lung. ABDOMEN: Soft, nontender. EXTREMITIES: Shows no new changes. LABORATORY DATA: CBC today, hemoglobin 7.2, hematocrit 23.7, WBC count were normal. Platelet count was normal. PT/INR was noted as 1.8 this morning. BMP was noted BUN 37, creatinine 1.49, glucose 126. IMPRESSION: 1. The patient with right-sided pneumonia with interval development of pleural fluid for the patient was noted with history of chronic anticoagulation with cardiomyopathy and other problems. 2. Severe peripheral vascular disease with diabetic foot wound for this patient on the right side. 3. Acute on chronic hypoxic respiratory failure as well. 4. History of centrilobular emphysema. PLAN OF TREATMENT: Continue the patient's current plan of therapy at this time without any changes. Continue usual medical plan of care as in progress. Repeat chest x-ray in the morning to reassess. Possibility of thoracentesis would be considered if pleural fluid remains persistent and does not resolve with current medical management. [place], [place] PROGRESS NOTE NAME: ARIANNA MUSTAFA [facility] #: [id number] UNIT #: [id number] ROOM: 424 DOCTOR: ERIKA FIGUEROA MD BIRTHDATE: [birth year] ERIKA ASKEW MD CM:EMIR [phone] ERIKA POON MD 10/29/16 0445 interface
--- NOTE | ~2016-10-23 | PR ---
[place], [place] PROGRESS NOTE NAME: ARIANNA MUSTAFA [facility] #: [id number] UNIT #: [id number] ROOM: 401 DOCTOR: TATE VALDOVINOS MD BIRTHDATE: [birth year] DOS: 10/25/2016 SUBJECTIVE: The patient was seen at his bedside today 10/25/2016 for followup of atrial fibrillation and weakness. The patient seems discouraged and depressed. Ulcerations on his feet were being dressed and cleaned when I visited him. He states that Physical Therapy attempted to have him stand and walk, but he did not have the strength to do it. He denies any chest pain or palpitations. He denies lightheadedness or syncope. He denies orthopnea. PHYSICAL EXAMINATION: VITAL SIGNS: Today, his pulse is 74 and irregularly irregular. Blood pressure is 122/52. He is afebrile. He weighs 61.2 kilograms with a body mass index of 18.3. NECK: Supple. He has no jugular distention. LUNGS: Respirations are unlabored. His chest has decreased breath sounds at the bases. HEART: An irregularly irregular rhythm, which is controlled in its rate. ABDOMEN: Soft. EXTREMITIES: Bandaged. IMPRESSION: I note that his rate is being controlled adequately utilizing beta blockers and digoxin. He has not had a recent digoxin level and therefore we will be checking that. At this point, there is nothing else for us to offer, and we will continue to observe him intermittently as needed. We thank the hospitalist group for asking our advice regarding his management. TATE VALDOVINOS MD CM:PNTRANS [phone] TATE VALDOVINOS MD 10/25/16 2217 interface
--- NOTE | ~2016-10-23 | CON ---
[place], [place] REPORT OF CONSULTATION NAME: ARIANNA MUSTAFA [facility] #: [id number] UNIT #: [id number] ROOM: 424 DOCTOR: ERIKA FIGUEROA MD BIRTHDATE: [birth year] DOS: 10/27/2016 PULMONARY CONSULTATION EVALUATION AND MANAGEMENT Consultation requested by Dr. Elder for assessment of symptoms of shortness of breath. HISTORY OF PRESENT ILLNESS: This is an 86-year-old male who has been known to me with past history of severe ischemic cardiomyopathy for this patient with history of congestive heart failure, systolic dysfunction, COPD and chronic hypoxic respiratory failure. The patient has been admitted under care of Dr. Elder for this patient on the date of service of October 23, 2016. The patient has been treated for this patient for acute respiratory problem for the patient and was planned for possibility of discharge for the patient's home setting when he was noted with worsening of the hypoxia requiring increased oxygen supplementation. The patient denies any symptoms of chest pain. Denies symptoms of abdominal pain. He does have mild cough without any sputum expectoration. He has not been reported any edema of the lower extremities. REVIEW OF SYSTEMS: CONSTITUTIONAL: Fatigue and tiredness noted without symptoms of fever or chills. EYES: Denies any burning, redness, or tenderness. EARS, NOSE, THROAT: No sore throat, hoarseness, otalgia, or postnasal drainage. CARDIOVASCULAR: Denies anginal pain or edema of the lower extremities at present time. GASTROINTESTINAL: Denies nausea, vomiting, diarrhea, abdominal pain, hematemesis, melena, or hematochezia. GENITOURINARY: Denies dysuria, suprapubic pain, or hematuria. MUSCULOSKELETAL: Denies acute joint pain, redness, or tenderness. CENTRAL NERVOUS SYSTEM: Denies dizziness, headache, diplopia or syncopal episodes. SKIN: The patient was noted with diabetic foot ulcer for the patient and peripheral vascular disease, which has been managed under care of the wound product management manager Hospitalization noted admission in September of 2016, at that time, the patient was treated for right lower lobe pneumonia and other problems and subsequently discharged home. Past medical history, social history, surgical history, family history, drug allergy history for patient, and home medication for patient remains the same as listed and documented in my consultation of 09/30/2016 after review with the patient remains unchanged. Please refer to my documentation consultation, which was done for the patient on 09/30/2016 which is available in the [facility] for further reference. PHYSICAL EXAMINATION: GENERAL: An 86-year-old male who has been currently noted on oxygen supplementation with simple facemask, height of 6 feet, weight of 102 pounds [place], [place] REPORT OF CONSULTATION NAME: ARIANNA MUSTAFA UNIT #: [id number] ROOM: 424 DOCTOR: TULIO FIGUEROA MDM BIRTHDATE: [birth year] with BMI of 18.3. VITAL SIGNS: For the patient which have been recorded shows the temperature noted 100.5 degrees Fahrenheit at midnight and currently noted afebrile. The respiratory rate of the patient recorded as 20, heart rate of 92-103, blood pressure 113/70-108/70 for this patient. HEENT: Examination shows head was atraumatic. Eyes nonicterus. NECK: Supple. CARDIOVASCULAR SYSTEM: S1, S2 is audible. LUNGS: For the patient was noted with decreased breath sounds noted in the right lung. The left lung was clear. ABDOMEN: Soft, nontender. Bowel sounds are present. EXTREMITIES: Showed no edema, clubbing or cyanosis. SKIN: Showed no lesions or rashes except the right diabetic foot for the patient which has been covered with a bandage at this time. CENTRAL NERVOUS SYSTEM: Cranial nerves 2-12 intact. There were no focal deficits. MUSCULOSKELETAL SYMPTOMS: No acute deformities. LABORATORY DATA: Labs on this patient. The PT/INR for the patient on 10/21 was 2.8, which is therapeutic. CBC of the patient on 10/23, WBC count was normal, hemoglobin 9, hematocrit 29.5, platelet count was normal. The lactic acid is 0.7. The BMP of patient on admission October 23, 2016, showed glucose was normal, BUN 37, creatinine 1.58. Troponin for this patient noted minimal elevation for this patient 0.58-0.72 on and . D-dimer mildly elevated at 0.72. CPK-MB was normal on and . Blood culture, no bacterial growth for the patient noted on . Echocardiogram for the patient that was done for the patient on 10/25/2016 for patient was reported by Dr. Elder for this patient as findings of severe concentric LVH for this patient with global hypokinesis of the left ventricle, abnormal septal defect as well. The left ventricular ejection fraction of the patient was described as 20%. PT/INR of the patient this morning was 1.5, which is subtherapeutic. Dig level 0.87 that was normal. Review of the radiology data: The chest x-ray which was done on admission for the patient on October 23, 2016, shows AICD noted in place with a small patchy infiltration of pleural fluid of the patient's right lower lobe. I have obtain another chest x-ray of patient this morning for this patient, PA lateral view for the patient to assess the worsening of the hypoxia for this patient shows interval development of moderate to large pleural fluid for the patient with right lower lobe acute infiltration for the patient was also suspected. IMPRESSION: 1. The patient who has been currently noted with acute on chronic hypoxic respiratory failure, which has worsened during this hospitalization, most likely related to the acute pneumonia for this patient, associated pleural fluid. Other additional diagnosis will be considered as findings consistent with acute congestive heart failure according to pleural fluid as well. 2. History of severe cardiomyopathy for the patient as well as and multiple other medical problems. 3. Subtherapeutic PT/INR. PLAN OF TREATMENT: Ordered the culture for this patient of the blood and the [place], [place] REPORT OF CONSULTATION NAME: ARIANNA MUSTAFA UNIT #: [id number] ROOM: [facility] DOCTOR: AZAR POON [facility] BIRTHDATE: [birth year] sputum for this patient. Start the patient antibiotic for the hospital-acquired infection with the use of the intravenous antibiotics for the patient as use of IV vancomycin and additional antibiotic for the gram-negative coverage for the patient like cefepime. The patient was noted allergy to PENICILLIN. As long as he does not have any anaphylactic reaction to penicillin, certainly cefepime could be used. All other supportive plan and management at this time to be continued. Continuation of the oxygen supplementation to maintain the saturation 90% or greater. Usual care. All other supportive plan of management and care. Usual care. All other supportive therapy and care. Usual medical management. Thanks for allowing me to participate in care of this patient. ERIKA ASKEW MD CM:CONSTR:REPORT OF CONSULTATION 1309 10/28/16 0106 interface
--- NOTE | ~2016-10-23 | PR ---
[place], [place] PROGRESS NOTE NAME: ARIANNA MUSTAFA [facility] #: [id number] UNIT #: [id number] ROOM: 401 DOCTOR: JAYLON MUÑOZ MD BIRTHDATE: [birth year] DOS: 10/24/2016 SUBJECTIVE: The patient is looking better. Even according to his , he has no new complaints. OBJECTIVE: VITAL SIGNS: Blood pressure 113/49, heart rate 83 beats per minute, breathing 20 times per minute, temperature 98.4 degrees Fahrenheit. Remainder of the exam, his breathing is somewhat better. Physical exam, the patient with bilateral foot ulcers involving left toe and right heel, generalized weakness, some mental confusion. IMPRESSION: 1. The patient with advanced adult failure to thrive. We are taking bedsore precautions. 2. Advance disability. The patient to work with physical therapy. The patient's says she would like to take him home. 3. Acute respiratory failure and shortness of breath and hypoxemia at home, resolved with the nebulizer treatments. The patient has exacerbation of chronic obstructive pulmonary disease, which is being treated. 4. Systolic type chronic congestive heart failure. Chest x-ray showing no acute abnormality. 5. Stage 3B chronic kidney disease. 6. Type 2 diabetes mellitus. Blood sugars have been reasonably controlled. The patient has diabetic nephropathy. JAYLON MUÑOZ MD CM:PNTRANS [phone] JAYLON MUÑOZ MD 10/25/16217 interface
[2016-10-23 06:01] LABS: BASO % 0.4 % (0.0-1.0); EOS # 0.1 10*3/uL (0.0-0.4); EOS % 0.8 % (1.0-4.0); HEMATOCRIT 29.5 % (42.0-52.0); LYMPH # 1.5 10*3/uL (1.3-4.4); LYMPH % 14.9 % (27.0-41.0); MEAN CELL VOLUME 102.1 fl (80.0-94.0); MEAN CORPUSCULAR HGB 31.1 pg (27.0-31.0); MEAN CORPUSCULAR HGB CONC 30.5 g/dl (33.0-37.0); MEAN PLATELET VOLUME 9.8 fl (9.6-12.3); MONO # 0.9 10*3/uL (0.1-1.0); MONO % 8.5 % (3.0-9.0); NEUT # 7.5 10*3/uL (2.3-7.9); NEUT % 75.1 % (47.0-73.0); PLATELET COUNT AUTOMATED 148 10*3/uL (130-400); RED BLOOD COUNT 2.89 10*6/uL (4.50-5.90); RED CELL DISTRI WIDTH 15.9 % (0-14.5)
[2016-10-23 06:11] LABS: INTERNATIONAL NORM RATIO 2.3 (2.0-3.5); PROTHROMBIN TIME 25.5 SECONDS (9.0-12.4)
[2016-10-23 06:19] LABS: ALBUMIN 2.1 gm/dl (3.1-4.5); BILIRUBIN, DIRECT 0.2 mg/dL (0.0-0.2); BILIRUBIN, TOTAL 0.5 mg/dl (0.2-1.0); POTASSIUM 4.3 mmol/L (3.5-5.1)
[2016-10-23 06:30] LABS: TROPONIN I 0.062 ng/ml (<0.045)
[2016-10-24] VITALS: BP 102/38; BP 93/62
[2016-10-24 04:00] VITALS: BP 100/50
[2016-10-24 07:01] LABS: BASO % 0.3 % (0.0-1.0); EOS # 0.3 10*3/uL (0.0-0.4); EOS % 3.4 % (1.0-4.0); HEMATOCRIT 25.4 % (42.0-52.0); HEMOGLOBIN 7.9 g/dl (14.0-18.0); LYMPH # 1.7 10*3/uL (1.3-4.4); LYMPH % 22.1 % (27.0-41.0); MEAN CELL VOLUME 101.2 fl (80.0-94.0); MEAN CORPUSCULAR HGB 31.5 pg (27.0-31.0); MEAN CORPUSCULAR HGB CONC 31.1 g/dl (33.0-37.0); MEAN PLATELET VOLUME 10.2 fl (9.6-12.3); MONO # 0.8 10*3/uL (0.1-1.0); NEUT # 4.9 10*3/uL (2.3-7.9); NEUT % 63.8 % (47.0-73.0); PLATELET COUNT AUTOMATED 138 10*3/uL (130-400); RED BLOOD COUNT 2.51 10*6/uL (4.50-5.90); WHITE BLOOD COUNT 7.6 10*3/uL (4.8-10.8)
[2016-10-24 07:08] LABS: PROTHROMBIN TIME 22.7 SECONDS (9.0-12.4)
[2016-10-24 07:11] LABS: POTASSIUM 4.2 mmol/L (3.5-5.1)
[2016-10-24 08:00] VITALS: BP 102/76
[2016-10-24 12:00] VITALS: BP 118/48
[2016-10-24 12:14] LABS: CKMB 1.7 ng/ml (0.5-3.6)
[2016-10-24 16:21] VITALS: BP 113/49
[2016-10-24 18:36] LABS: CKMB 1.4 ng/ml (0.5-3.6)
[2016-10-24 20:02] VITALS: BP 139/86
[2016-10-25] VITALS: BP 108/70
[2016-10-25 08:00] VITALS: BP 122/52
[2016-10-25 08:26] LABS: INTERNATIONAL NORM RATIO 1.8 (2.0-3.5); PROTHROMBIN TIME 19.3 SECONDS (9.0-12.4)
[2016-10-25 16:00] VITALS: BP 118/67
[2016-10-25 20:00] VITALS: BP 104/51
[2016-10-26] VITALS: BP 110/41
[2016-10-26 07:16] LABS: INTERNATIONAL NORM RATIO 1.6 (2.0-3.5); PROTHROMBIN TIME 17.4 SECONDS (9.0-12.4)
[2016-10-26 08:00] VITALS: BP 100/50
[2016-10-26 16:00] VITALS: BP 107/65
[2016-10-26 20:00] VITALS: BP 101/77
[2016-10-27] VITALS: BP 132/43
[2016-10-27 07:25] LABS: INTERNATIONAL NORM RATIO 1.5 (2.0-3.5); PROTHROMBIN TIME 16.7 SECONDS (9.0-12.4)
[2016-10-27 08:00] VITALS: BP 113/78
[2016-10-27 16:00] VITALS: BP 108/72
[2016-10-27 20:00] VITALS: BP 126/74
[2016-10-28] VITALS: BP 124/69
[2016-10-28 06:52] LABS: HEMATOCRIT 23.7 % (42.0-52.0); HEMOGLOBIN 7.2 g/dl (14.0-18.0); LYMPH # 0.8 10*3/uL (1.3-4.4); LYMPH % 16.9 % (27.0-41.0); MEAN CORPUSCULAR HGB 31.3 pg (27.0-31.0); MEAN CORPUSCULAR HGB CONC 30.4 g/dl (33.0-37.0); MEAN PLATELET VOLUME 10.5 fl (9.6-12.3); MONO # 0.2 10*3/uL (0.1-1.0); MONO % 3.4 % (3.0-9.0); NEUT # 3.9 10*3/uL (2.3-7.9); NEUT % 79.3 % (47.0-73.0); PLATELET COUNT AUTOMATED 137 10*3/uL (130-400); RED CELL DISTRI WIDTH 15.3 % (0-14.5)
[2016-10-28 07:26] LABS: INTERNATIONAL NORM RATIO 1.8 (2.0-3.5); PROTHROMBIN TIME 20.2 SECONDS (9.0-12.4)
[2016-10-28 07:31] LABS: POTASSIUM 4.5 mmol/L (3.5-5.1)
[2016-10-28 08:00] VITALS: BP 112/53
[2016-10-28 16:00] VITALS: BP 123/50
== END 2016-10-28 17:42 | DRG 291 ==
LOC: ED 05:23 → 4E 06:45 → EDHOLD 06:45 → 4E 07:42
PROVIDERS: Emergency Medicine; Internal Medicine; Internal Medicine Cardiovascular Disease; Internal Medicine Critical Care Medicine
DX: I13.0 Hypertensive heart and chronic kidney disease with heart failure and stage 1 through stage 4 chronic kidney disease, or unspecified chronic kidney disease (principal); I50.23 Acute on chronic systolic (congestive) heart failure; J96.21 Acute and chronic respiratory failure with hypoxia; J44.0 Chronic obstructive pulmonary disease with (acute) lower respiratory infection; J44.1 Chronic obstructive pulmonary disease with (acute) exacerbation; I42.0 Dilated cardiomyopathy; N18.3 Chronic kidney disease, stage 3 (moderate); E11.22 Type 2 diabetes mellitus with diabetic chronic kidney disease; E11.51 Type 2 diabetes mellitus with diabetic peripheral angiopathy without gangrene; I48.91 Unspecified atrial fibrillation; L97.519 Non-pressure chronic ulcer of other part of right foot with unspecified severity; L97.529 Non-pressure chronic ulcer of other part of left foot with unspecified severity; R62.7 Adult failure to thrive; L89.619 Pressure ulcer of right heel, unspecified stage; D64.9 Anemia, unspecified; I25.10 Atherosclerotic heart disease of native coronary artery without angina pectoris; E78.2 Mixed hyperlipidemia; M1A.9XX0 Chronic gout, unspecified, without tophus (tophi); Z88.0 Allergy status to penicillin; Z88.8 Allergy status to other drugs, medicaments and biological substances; Z91.048 Other nonmedicinal substance allergy status; Z79.01 Long term (current) use of anticoagulants; Z82.3 Family history of stroke; Z80.9 Family history of malignant neoplasm, unspecified; Z95.5 Presence of coronary angioplasty implant and graft; Z95.810 Presence of automatic (implantable) cardiac defibrillator

== ENCOUNTER 2016-11-09 21:11 | Inpatient (IN) | payer MEDICARE ==
[~2016-11-09] VITALS: Ht 152.4 cm; Wt 73.0 kg
--- NOTE | ~2016-11-09 | PR ---
[place], [place] PROGRESS NOTE NAME: ARIANNA MUSTAFA [facility] #: [id number] UNIT #: [id number] ROOM: 427 DOCTOR: BELINDA VALDIVIA MD BIRTHDATE: [birth year] DOS: 11/12/2016 SUBJECTIVE: This is a gentleman with severe ischemic cardiomyopathy and has a high energy device. He was admitted because of increasing shortness of breath and also was coughing up some nonpurulent sputum. IV furosemide dose was increased and the last 48 hours, he has 2.7 liters of fluid negative balance. His breathing is much easier. There is no palpitations or chest pain. Cough is still productive. No chills or fever. OBJECTIVE: GENERAL: He is sitting in a chair, alert, comfortable, not tachypneic. VITAL SIGNS: Temperature is normal. Pulse is 88, blood pressure 112/52. NECK: JVP is normal. EXTREMITIES: There is no edema in the lower extremities. LUNGS: Auscultation of the lungs revealed reduced breath sounds adventitious sounds. LABORATORY DATA: BUN has come down as has creatinine. IMPRESSION: 1. Severe ischemic cardiomyopathy. 2. Acute on chronic systolic heart failure. This appeared to be adequately compensated clinically. He is currently on furosemide 40 mg b.i.d. RECOMMENDATIONS: A chest x-ray should be repeated to assess resolution of pulmonary edema and dose of furosemide should be continued and this dose for another day. When he is discharged, I recommend a higher dose of furosemide such as 80 mg once a day. I would like to see him in my office in a week or 2 after discharge. BELINDA VALDIVIA MD CM:PNTRANS [phone] BELINDA VALDIVIA MD 11/12/16 2336 interface
--- NOTE | ~2016-11-09 | PR ---
[place], [place] PROGRESS NOTE NAME: ARIANNA MUSTAFA [facility] #: [id number] UNIT #: [id number] ROOM: 427 DOCTOR: JAYLON MUÑOZ MD BIRTHDATE: [birth year] DOS: 11/12/2016 SUBJECTIVE: The patient states he is breathing better with diuresis. OBJECTIVE: VITAL SIGNS: Blood pressure 112/64, heart rate of 72 beats per minute, breathing 20 times per minute, temperature of 98 degrees Fahrenheit, pulse oximetry showed 98% pulse ox with oxygen. IMPRESSION: Pulmonary edema and acute CHF. The patient is diuresing very well with diuretics and dobutamine and dopamine infusions by Dr. Davis, the metal worker. No signs of pneumonia as noted by Dr. Bowen and procalcitonin level where I performed was also normal. The patient with systolic type CHF, acute over chronic, diuresing well. The patient's INR is going towards therapeutic range. The patient is on Coumadin. INR was 1.9 today. Leukocytosis has resolved. Procalcitonin level was normal a day before yesterday. Overall, poor health and poor prognosis in the long run. Type 2 diabetes mellitus. Blood sugars are being monitored and treated. Diabetic nephropathy with stage 3 chronic kidney disease. JAYLON MUÑOZ MD CM:PNTRANS [phone] JAYLON MUÑOZ MD 11/13/16 0339 interface
--- NOTE | ~2016-11-09 | PR ---
[place], [place] PROGRESS NOTE NAME: ARIANNA MUSTAFA [facility] #: [id number] UNIT #: [id number] ROOM: 427 DOCTOR: ERIKA FIGUEROA MD BIRTHDATE: [birth year] DOS: 11/12/2016 PULMONARY PROGRESS NOTE SUBJECTIVE: The patient was seen and examined on 11/12/2016. He has been sitting and comfortably resting on the chair. Denied symptoms of chest pain or any abdominal pain. He was continued on IV dopamine, dobutamine combination. The patient was noted with significant improvement in the diuresis as well. OBJECTIVE: VITAL SIGNS: For the patient, which has been recorded showed the temperature of the patient recorded as normal, respiratory rate 20, heart rate 94, blood pressure 112/52-111/54. Pulse oxygen saturation of the patient recorded on 5 liters nasal cannula 94% saturation. HEENT: Showed no acute change. NECK: Supple. CARDIOVASCULAR SYSTEM: S1, S2 audible. LUNGS: For the patient was noted decreased breath sounds in the lower portion of the lungs with partial improvement from yesterday. ABDOMEN: Soft, nontender. LABORATORY DATA: BUN today noted 56, creatinine 1.71. The INR today was noted 1.9, close to the low therapeutic range. Progressive level noted at 0.02 of the patient on admission, which was noted only minimal elevation. Blood culture reported no bacterial growth from admission. IMPRESSION: 1. Resolving acute respiratory failure of the patient secondary to acute congestive heart failure, history of severe cardiomyopathy, currently treated with IV dopamine, dobutamine. 2. Chronic kidney disease stage 3 as well. 3. Chronic anticoagulation with history of atrial fibrillation with the improvement in the anticoagulation of the patient noted with INR gradually getting to the therapeutic range. 4. Overall severe debility. 5. Severe peripheral vascular disease. PLAN OF TREATMENT: Continue current combination of medication for the patient without any changes. There were no signs of any active infection at this time noted. A chest x-ray of the patient repeated in morning to assess the improvement in the congestive heart failure and pleural effusions. [place], [place] PROGRESS NOTE NAME: ARIANNA MUSTAFA [facility] #: [id number] UNIT #: [id number] ROOM: 427 DOCTOR: ERIKA FIGUEROA MD BIRTHDATE: [birth year] ERIKA ASKEW MD CM:EMIR [id number] ERIKA POON MD 11/13/16 015 interface
--- NOTE | ~2016-11-09 | PR ---
[place], [place] PROGRESS NOTE NAME: ARIANNA MUSTAFA [facility] #: [id number] UNIT #: [id number] ROOM: 427 DOCTOR: AZAR POON MD,ERIKA BIRTHDATE: [birth year] DOS: 11/13/2016 PULMONARY FOLLOWUP NOTE SUBJECTIVE: The patient was noted essentially the same. He has been continued on the diuretic therapy for this patient as well as the use of dopamine and dobutamine combination. The patient does have mild cough without any sputum expectoration. Denies any abdominal pain. OBJECTIVE: VITAL SIGNS: Normal temperature, respiratory rate 18, heart rate of 60, blood pressure 120/64. Intake 2600 mL, output 5000, negative fluid balance of 2.8 approximately noted. Pulse oxygen saturation on 4 liters nasal cannula was 99% saturation. HEENT: Examination showed no acute change. NECK: Supple. CARDIOVASCULAR SYSTEM: S1, S2 audible. LUNGS: Noted with decreased breath sounds noted in the left lung. The right lung was clear. There was no wheezing or crackles. ABDOMEN: Soft, nontender. LABORATORY DATA: Chest x-ray, PA and lateral view that was done yesterday for the patient was noted with atelectasis of the left lower lobe for this patient associated pleural fluid and some volume loss. The right lung was noted clear. There was no pleural effusion noted on the right side. INR noted 2.1, which is in the therapeutic range. IMPRESSION: 1. The patient with multiple medical problems including advanced cardiomyopathy as well as peripheral vascular disease with respiratory failure as well. 2. Mucus impaction of the airway for the patient will be suspected for patient on the left side inability to clear up the phlegm. 3. Mostly bed bound status and inability to ambulate independently. PLAN OF TREATMENT: Overall, prognosis for the patient, which has been considered very was poor discussed with the patient and patient's spouse. Strongly recommended about the consideration for hospice care because of multiple long-term medical problems for the patient and recurrent hospitalization for the comfort measures. At this time, no decision has been made. She says she will discuss this with her children as well as with the patient later on to hopefully make a decision about that. In the meantime, continue current therapy plan and management. Bronchoscopy at this time was not planned to be done for the patient because of overall poor physical and medical status with high risk of morbidity. [place], [place] PROGRESS NOTE NAME: ARIANNA MUSTAFA UNIT #: [id number] ROOM: 427 DOCTOR: AZAR POON MD,ERIKA BIRTHDATE: [birth year] ERIKA ASKEW MD CM:PNTASHA [id number] ERIKA POON MD 11/14/16 0023 interface
--- NOTE | ~2016-11-09 | PR ---
[place], [place] PROGRESS NOTE NAME: ARIANNA MUSTAFA [facility] #: [id number] UNIT #: [id number] ROOM: 427 DOCTOR: JAYLON MUÑOZ MD BIRTHDATE: [birth year] DOS: 11/11/2016 SUBJECTIVE: The patient is starting to breathe better. OBJECTIVE: VITAL SIGNS: Blood pressure 124/50, heart rate of 72 beats per minute, breathing 18 times per minute, afebrile. GENERAL: Generalized weakness and the patient has left great toe wound and has a right heel ulcer. LUNGS: Clear to auscultation, decreased breath sounds. The patient has generalized weakness. CARDIOVASCULAR SYSTEM: Heart rate is regular in rate and rhythm. S1, S2 audible. ABDOMEN: Benign. Soft, nontender. No obvious organomegaly. Bowel sounds are present. IMPRESSION: 1. The patient with left perihilar and basilar areas with mild pulmonary edema and pneumonic infiltrates. The patient is being followed by the marketing services rep, Dr. Bowen who has not recommended any treatment with antibiotics so far. 2. Acute over chronic systolic type congestive heart failure. The patient was started on dobutamine infusion, dopamine by his sales and operations trainee, Dr. Davis for 3 days to treat his congestive heart failure. 3. Chronic systolic type congestive heart failure with low normal left ventricular ejection fraction at about 50% with moderate left ventricular hypertrophy on echocardiogram from last month. 4. Minimally elevated troponin I levels. The patient evaluated by sales and operations trainee, Dr. Davis. The patient has severe ischemic cardiomyopathy. Dr. Bowen does not believe that the patient has any pneumonic infiltrates and does not need any treatment with antibiotics. I checked the procalcitonin level and that is normal at 0.02, no signs of infection. JAYLON MUÑOZ MD CM:PNTRANS [id number] JAYLON MUÑOZ MD 11/12/16 1519 interface
--- NOTE | ~2016-11-09 | WRIGHTHP ---
[place], [place] PATIENT HISTORY AND PHYSICAL EXAM NAME: ARIANNA MUSTAFA [facility] #: [id number] UNIT #: [id number] ROOM: 427 DOCTOR: JAYLON MUÑOZ MD BIRTHDATE: [birth year] DOS: 11/10/2016 HISTORY OF PRESENT ILLNESS: 1. The patient is an 86-year-old gentleman with a past medical history of adult failure to thrive. 2. Chronic respiratory failure with advanced COPD on home oxygen dependence, chronic gouty arthritis. 3. Chronic kidney disease stage 3A. 4. Chronic left toe nonhealing wound followed by wound center. 5. Mixed hyperlipidemia. Concentric left ventricular hypertrophy with global hypokinesis, left ventricular ejection fraction of 20%. 6. Type 2 diabetes mellitus. 7. Systolic type CHF, chronic. The patient who was brought into the Emergency Department at [facility] with increased shortness of breath, slight cough, but patient was unable to bring up any sputum. In the ER, a chest x-ray was performed and it showed left perihilar and basilar airspace disease compatible with pneumonia and mild pulmonary edema. The patient says he feels very weak and he just says unable to stay home after treatment, he gets new sickness everytime. No chest pains, starting to breathe better after admission. No chest pain, no dizziness or fainting episodes. No other GI or urinary symptoms, just generalized weakness. REVIEW OF SYSTEMS: LUNGS: Increased shortness of breath and slight cough. GASTROINTESTINAL: No nausea, vomiting, diarrhea or constipation. CARDIOVASCULAR SYSTEM: No chest pain or palpitations. SOCIAL HISTORY: The patient lives at home with his . Denies smoking cigarettes, alcohol or any drug abuse. FAMILY HISTORY: Noncontributory. ALLERGIES: KNOWN ALLERGIES TO PENICILLIN AND PREDNISONE. PHYSICAL EXAMINATION: The patient has generalized weakness and muscle wasting, has a chronic left toe wound and also has a right heel ulcer. LABORATORY DATA: Hemoglobin 9.4, white cell count was 12,600 on admission. BUN and creatinine 52 and 1.9, it was 53 and 2.2 yesterday. IMPRESSION: 1. The patient presenting with no pneumonic infiltrates in the left perihilar and basilar areas along with some mild pulmonary edema to be treated with antibiotics. Dr. Bowen has been consulted. The patient has recurrent admissions to the hospital for similar problems and overall poor health and adult failure to thrive. 2. Acute over chronic congestive heart failure with mild pulmonary edema with left ventricular ejection fraction of only 20%. He will be followed closely and treated with oxygen and nebulizer treatments as necessary. [place], [place] PATIENT HISTORY AND PHYSICAL EXAM NAME: ARIANNA MUSTAFA UNIT #: [id number] ROOM: 427 DOCTOR: TONI LOONEY,JAYLON Keen BIRTHDATE: [birth year] 3. Subtherapeutic INR at 1.6. It will be monitored and dose of Coumadin adjusted. 4. Anemia of chronic disease with hemoglobin 9.4. We will follow regularly. 5. Leukocytosis with white cell count of 12,600 apparently from pneumonia have already normalized and will be followed. Also, check a procalcitonin level. 6. Elevated cardiac enzymes will be evaluated and treated by Cardiology. I will repeat troponin I levels. 7. Overall, poor long-term prognosis is very poor health and failure to thrive. 8. Type 2 diabetes mellitus. Blood sugars are going to be monitored and treated accordingly and the patient to be kept on a no concentrated sweet diet. 9. Diabetic nephropathy with chronic kidney disease stage 3A. BUN and creatinine and serum electrolytes will be monitored and treated accordingly. JAYLON MUÑOZ MD CM:HISPHYS:PATIENT HISTORY AND PHYSICAL EXAMINATION [id number] JAYLON MUÑOZ MD 11/10/16 1103 interface
--- NOTE | ~2016-11-09 | DS ---
[place], [place] DISCHARGE SUMMARY NAME: ARIANNA MUSTAFA [facility] #: [id number] UNIT #: [id number] ROOM: 427 DOCTOR: JAYLON MUÑOZ MD BIRTHDATE: [birth year] DOS: 11/13/2016 DISCHARGE DIAGNOSES: 1. The patient with old age, advanced disability and failure to thrive. 2. Pulmonary edema, systolic type congestive heart failure with 10% left ventricular ejection fraction. 3. Severe peripheral vascular disease, nonhealing left great toe ulcer and right heel wound and severe peripheral arterial disease with poor circulation. 4. Type 2 diabetes mellitus. 5. Chronic kidney disease stage 3A and diabetic nephropathy. 6. Chronic obstructive pulmonary disease and chronic centrilobular emphysema with chronic respiratory failure and oxygen dependence. 7. Advanced adult failure to thrive. HOSPITAL COURSE: The patient presented to the Emergency Department with increased shortness of breath and was diagnosed as having pulmonary edema. No pneumonia was found. The patient was evaluated by Dr. Bowen. I also did procalcitonin levels, which were negative for any pneumonia or infection or sepsis. The patient was seen by Dr. Davis and diuresed with infusion of dopamine and dobutamine along with Lasix and he diuresed very well. The patient is breathing much better and on family request, he is being transferred to [facility] with a DNR comfort care code status. The patient's and daughter want him to be sent there for end-of-life care, so I have also added comfort care measures to his treatment. Severe cardiomyopathy. The patient on Coumadin, which is with the therapeutic INR at 2.2. His Coumadin dose was adjusted. Diabetic nephropathy, stage 3A chronic kidney disease. Slightly positive troponin I level at 0.071, was evaluated by Cardiology. No further evaluation or management was recommended. LABORATORY DATA: Blood cultures were negative. INR at 2.2. DISCHARGE MANAGEMENT: Furosemide 40 mg b.i.d. Check basic metabolic profile in 1 week. Regular diet. Gabapentin 300 mg at bedtime, Lipitor 20 mg a day, Coumadin 2 mg daily. Repeat INR in 1 week and then every month. Digoxin 125 mcg daily, allopurinol 100 mg a day, Flomax 0.4 mg daily, potassium chloride 10 mEq daily, meclizine 25 mg b.i.d., Coreg 3.125 mg b.i.d., omeprazole 20 mg a day, mirtazapine 15 mg at bedtime, DuoNebs every 6 hours, Ativan 2 mg every 4 hours as needed for anxiety and agitation, morphine concentrate 10 mg every 2 hours as needed for pain and agitation. He can call me for any issues at [phone]. [place], [place] DISCHARGE SUMMARY NAME: MUSTAFAARIANNA ARIAS Torri UNIT #: [id number] ROOM: [facility] DOCTOR: JAYLON MUÑOZ MD BIRTHDATE: [birth year] JAYLON MUÑOZ MD CM:TINO [id number] JAYLON MUÑOZ MD 11/15/16 6504 interface
--- NOTE | ~2016-11-09 | CON ---
[place], [place] REPORT OF CONSULTATION NAME: ARIANNA MUSTAFA [facility] #: [id number] UNIT #: [id number] ROOM: 427 DOCTOR: AZAR POON MDERIKA BIRTHDATE: [birth year] DOS: 11/10/2016 PULMONARY CONSULTATION EVALUATION AND MANAGEMENT CONSULTATION REQUESTED BY: Everton Eledr MD REASON FOR CONSULTATION: To assess the patient for abnormal respiratory complaints. HISTORY OF PRESENT ILLNESS: This is an 86 years old white male who has been admitted to the hospital under care of Dr. Elder for the symptoms of shortness of breath and respiratory distress. The patient has been admitted in [facility] later on transferred to [facility] and was discharged on 11/08/2016. The patient has been treated and shows improvement in the acute pneumonia, completed the antibiotic course of 2 weeks or greater, also use the steroids for this patient low dose as well. The patient was noted in usual state of health without any distress or any respiratory problems and others. The patient has been advised multiple times about transfer to the penitentiary facility, but the patient was adamant and not wanting to go any penitentiary facility, but home. The was aware of the situation that the patient was refusing to go to penitentiary facility. Ambulance was called for this patient and the patient brought to the hospital last evening and the patient developed acute respiratory distress with the patient using accessory muscles of respiration. The patient's oxygen saturation noted essentially the same as 92% on 4 liters usual oxygen supplementation. He was given the breathing treatment. He had been admitted to the hospital for further medical management. Expiratory wheezing of the patient was described as well. The patient denies any symptoms of coughing, chest pain. He stated that he was not sure why he is in the hospital as he had been asked the question. This morning as the patient was seen on 11/10/2016. He had been noted comfortably lying in the bed without any distress noted at the present time. The patient does not have any specific complaints of chest pain. Denies symptoms of hemoptysis. Does not remember if he has any wheezing. REVIEW OF SYSTEMS: Limited for this patient. CONSTITUTIONAL SYMPTOMS: He does complain of some fatigue. Denies symptoms of fever or chills. EYES: Denies any burning, redness, or tenderness. EARS, NOSE, THROAT SYMPTOMS: No sore throat, hoarseness, otalgia, postnasal drainage. CARDIOVASCULAR SYSTEM: Denies anginal pain, edema or pain of the lower extremities. Chronic changes of the lower extremity, which has been known previously. GASTROINTESTINAL SYMPTOMS: Denies dysphagia, nausea, vomiting, diarrhea, abdominal pain, hematemesis, melena, or dysphagia. GENITOURINARY SYMPTOMS: Denies dysuria, suprapubic pain, hematuria. MUSCULOSKELETAL SYMPTOMS: Denies any acute joint pain, redness, or tenderness. SKIN: Denies any lesions or rashes. MUSCULOSKELETAL SYMPTOMS: Denies any acute joint pain. CENTRAL NERVOUS SYSTEM: Generalized weakness and fatigue was noted for the [place], [place] REPORT OF CONSULTATION NAME: ARIANNA MUSTAFA [facility] #: [id number] UNIT #: [id number] ROOM: [facility] DOCTOR: ERIKA FIGUEROA MD BIRTHDATE: [birth year] patient with the decreased mobility secondary to peripheral vascular disease and generalized weakness from home was known. PAST MEDICAL HISTORY: For this patient was known with, 1. History of advanced cardiomyopathy for this patient with the history of congestive heart failure and pleural fluids previously. 2. The patient with a history of advanced centrilobular emphysema. 3. Chronic hypoxic respiratory failure. 4. Advanced peripheral vascular disease, inoperable for surgery. 5. Chronic wound for the patient, which has been noted intermittently lower extremities. 6. History of type 2 diabetes mellitus. 7. Chronic atrial fibrillation. 8. Chronic anticoagulation. 9. Diabetic foot. 10. Chronic kidney disease stage 3. 11. Essential hypertension. 12. Gouty arthritis. 13. History of Meniere's disease. PAST SURGICAL HISTORY: 1. Tonsillectomy. 2. Appendectomy. 3. Cardiac catheterization and coronary artery stent insertion. 4. AICD insertion. 5. Tonsillectomy. 6. T and A. 7. Hemorrhoidectomy. 8. Cataract extraction. 9. Chest tube placement for the patient during his past hospitalization in 2016 in [facility] for the drainage of the pleural fluids. SOCIAL HISTORY: The patient is , lives at home. Smoking noted since teenager, half a pack of cigarettes per day until April 2004. He has worked in the [employer] for several years with exposure to dust and other chemicals. There is no history of chronic alcohol and illicit drugs dependence. FAMILY HISTORY: Father at the age of 8080 years old from complications of renal failure. Mother from complication related to the uterine cancer at the age of 71. MEDICATIONS: Current administered medication was noted as use of Neurontin, Lipitor, Coumadin, digoxin, allopurinol, Flomax, potassium chloride, meclizine, oral Lasix, Coreg, omeprazole, Remeron, albuterol sulfate, Xanax 0.25 mg p.o. b.i.d. DRUG ALLERGY HISTORY: THE PATIENT WAS NOTED ALLERGY TO THE PENICILLINS AND PREDNISONE. PHYSICAL EXAMINATION: [place], [place] REPORT OF CONSULTATION NAME: ARIANNA MUSTAFA UNIT #: [id number] ROOM: 427 DOCTOR: AZAR POON MD,ERIKA BIRTHDATE: [birth year] GENERAL: This is an 86 years old male who has been currently noted comfortably lying in the bed without any distress. Height of 6 feet, weight of 161 pounds, BMI 31.4. VITAL SIGNS: Recorded as a normal temperature, respiratory rate 16-24, heart rate 78-87, blood pressure 142/55-135/61. Pulse oxygen saturation on 4 liters nasal cannula 97% saturation. HEENT: Examination shows head was atraumatic. Eyes nonicterus. NECK: Supple. CARDIOVASCULAR SYSTEM: S1, S2 audible. LUNGS: The patient was noted without any wheezing or crackles, decreased breaths are noted in the left chest on auscultation. ABDOMEN: Soft, nontender. CENTRAL NERVOUS SYSTEM: Of the patient generally weak and fatigue without any focal deficit. Cranial nerves limited examination, but noted intact. SKIN: Shows scattered bruising of the skin, chronic secondary to use of the Coumadin without any lesions or ulcers noted upper extremity. Chronic changes in the left lower extremity of the patient which has been wrapped in the lower portion of the legs with the bandages. MUSCULOSKELETAL SYMPTOMS: No obvious deformities. LABORATORY DATA: CBC, 11/09/2016, WBC count 12.6, hemoglobin 10, hematocrit 33.1, platelet count was normal. The blood culture of the patient from the past for this patient was noted no bacterial growth. Lactic acid 1.2, normal. BMP of the patient on 11/09/2016, BUN of 53, creatinine 2.24, glucose 154. Troponin 0.069, calcium 7.7. INR was noted as 1.6. BMP this morning, BUN 52, creatinine 1.99. Carbon dioxide 34. CBC this morning, hemoglobin 9.4, hematocrit 31.2, platelet count 147,000. The chest x-ray of the patient 1 view, which was done for this patient was reviewed for this patient showed chronic changes with the chronic pleural fluid for the patient with some pleural thickening of the left side was noted without any acute changes as compared to previous examination. Right lung was noted clear. IMPRESSION: 1. The patient who had been currently admitted to the hospital noted with acute kidney injury for the patient, history of chronic kidney disease as new finding resulting in current symptoms of shortness breath with wheezing secondary to chronic asthma. 2. Chronic obstructive pulmonary disease of the patient was also known. 3. The patient with history of advanced cardiomyopathy for this patient. 4. Advanced chronic obstructive pulmonary disease as well as the peripheral vascular disease with decreased mobility. The patient has been noted with multiple chronic progressive medical problems. The patient with limited prognosis. PLAN OF TREATMENT: Close monitoring of kidney functions, avoid the excessive diuretic therapy. The current pleural fluids continued to be monitored at this time, no intervention necessary. There were no clinical signs of ongoing acute infection or pneumonia for this patient at this time. The antibiotic use will not be needed. Discussion again needs to be done with the patient and the family members about consideration of the hospitalist services in the home [place], [place] REPORT OF CONSULTATION NAME: ARIANNA MUSTAFA UNIT #: [id number] ROOM: 427 DOCTOR: ERIKA FIGUEROA MD BIRTHDATE: [birth year] settings. The patient has been refusing to be admitted to the penitentiary facility for further care of the chronic problems. Limited management of the patient could be provided for this patient in the home settings. The patient and the family members were well aware of the current situation. Thanks for allowing me to participate in the care of this patient. ERIKA ASKEW MD CM:CONSTR:REPORT OF CONSULTATION 1100 11/11/16 0243 interface
--- NOTE | ~2016-11-09 | PR ---
[place], [place] PROGRESS NOTE NAME: ARIANNA MUSTAFA [facility] #: [id number] UNIT #: [id number] ROOM: 427 DOCTOR: AZAR POON MD,ERIKA BIRTHDATE: [birth year] DOS: 11/11/2016 SUBJECTIVE: He has been noted much more coherent with the patient awake and alert. The patient was started on IV dopamine and dobutamine combination for the patient for the medical congestive heart failure by the Cardiology Services. The patient denies any coughing. Shortness of breath has been noted decreased. There were no symptoms of chest pain or any abdominal pain. OBJECTIVE: VITAL SIGNS: For the patient which have been recorded showed the temperature noted as normal. The respiratory rate of the patient recorded as 20. Heart rate 77. Blood pressure noted at 100/81. HEENT: Examination shows head was atraumatic. Eyes nonicterus. NECK: Supple. CARDIOVASCULAR: S1, S2 audible. LUNGS: The patient noted without any wheezing. Crackles of the lungs for the patient noted scattered in the lungs bilaterally, more on the left than the right side. ABDOMEN: Soft, nontender. IMPRESSION: The patient who has been currently noted at this time with acute congestive heart failure for the patient with systolic dysfunction, history of cardiomyopathy, previously treated for pneumonia for the patient which has resolved. ____ debilitated for current hospitalization, advanced peripheral vascular disease. PLAN OF TREATMENT: Continue IV dopamine and dobutamine. Monitor chest x-ray of the patient intermittently as needed. No further intervention in the treatment for the patient otherwise will be needed. Supportive care therapy, plan of management and care. Usual treatment. Further treatment changes will be done based on the progression of the illness. ERIKA ASKEW MD CM:PNTRANS [id number] ERIKA POON MD 11/12/16 0834 interface
--- NOTE | ~2016-11-09 | CON ---
[place], [place] REPORT OF CONSULTATION NAME: ARIANNA MUSTAFA [facility] #: [id number] UNIT #: [id number] ROOM: 427 DOCTOR: BELINDA VALDIVIA MD BIRTHDATE: [birth year] DOS: 11/10/2016 HISTORY OF PRESENT ILLNESS: This is an 86-year-old [place] man with a history of chronic respiratory failure due to COPD, who uses oxygen at all times. He has coronary artery disease and had coronary stents deployed and also has severe ischemic cardiomyopathy. He has an AICD implant that was implanted quite a long time ago. In the last year, his LV ejection fraction has declined markedly. He has chronic atrial fibrillation and has had chronic systolic heart failure with exacerbation and stage II kidney disease, essential hypertension, type 2 diabetes mellitus, and he also had peripheral vascular disease and has had procedures done to the lower extremities. He has a nonhealing ulcer of the foot that is being addressed. He was discharged home [facility] doing quite well. Once he got home, he became short of breath and started coughing more. He was coughing up some clear sputum. There is no blood in it. He has not had any fever, chills, or palpitations, and no chest pain. He does not smoke nor does he drink alcoholic beverages. HOME MEDICATIONS: Include Symbicort, DuoNeb, allopurinol, alprazolam, ferrous sulfate, furosemide 40 q.a.m. p.o., carvedilol 3.125 mg b.i.d., atorvastatin 20 mg at bedtime, potassium 10 mEq daily, warfarin 2 mg daily except on Tuesday and Tuesday, Remeron 50 mg daily, multivitamin, omeprazole 20 daily, Flomax 0.4 mg b.i.d., meclizine 25 mg b.i.d., gabapentin 300 daily. PHYSICAL EXAMINATION: GENERAL: Reveals a patient who is restless, quite tachypneic. Chest seems to be rattling. He seems exhausted. He is not diaphoretic. VITAL SIGNS: Temperature is normal at 98 degrees. Pulse is 72, blood pressure 90/50. NECK: JVP is about 10 cm. External jugular veins are quite distended as well. He has no edema in the lower extremities. HEART: Auscultation of the lungs revealed a grade 2/6 pansystolic murmur over the apex. RESPIRATORY: He is very tachypneic, well on oxygen. Percussion note reveals hyperresonance. Auscultation reveals a lot of crackles anteriorly and posteriorly. Chest x-ray demonstrated pulmonary edema. Creatinine was 1.99, has come down from yesterday. Troponin-I level is 0.053. Hemoglobin is 9.4 g/dL. ECG shows underlying atrial fibrillation with ventricular pacing. IMPRESSION: 1. This patient has severe ischemic cardiomyopathy and has a moderate degree of cardiac decompensation, which is likely the reason for his worsening shortness of breath. 2. Chronic kidney disease is present. His creatinine seems to be at baseline. [place], [place] REPORT OF CONSULTATION NAME: ARIANNA MUSTAFA UNIT #: [id number] ROOM: [facility] DOCTOR: BELINDA VALDIVIA MD BIRTHDATE: [birth year] 3. Chronic atrial fibrillation with ventricular pacing. RECOMMENDATIONS: Discontinue p.o. furosemide and start IV furosemide 40 mg b.i.d. I think it is probably a good idea to start him on dobutamine drip at 5 mcg per kg per minute for 72 hours and also 2.5 mg per minute of dopamine for 72 hours. Prognosis is poor. I thank you for this consult. BELINDA VALDIVIA MD CM:CONSTR:REPORT OF CONSULTATION 1810 11/11/16 0518 interface
[2016-11-09 21:14] VITALS: BP 135/58
[2016-11-09] MEDS ORDERED: REMERON15 M2 PO (21:28)
[2016-11-09] MEDS ORDERED: XANAX0.25 MG PO (21:32)
[2016-11-09 21:39] VITALS: BP 135/62
[2016-11-09 21:40] LABS: BASO % 0.2 % (0.0-1.0); EOS # 0.3 10*3/uL (0.0-0.4); EOS % 2.4 % (1.0-4.0); HEMATOCRIT 33.1 % (42.0-52.0); IG # 0.1 10*3/uL (0.0-0.1); LYMPH # 1.2 10*3/uL (1.3-4.4); LYMPH % 9.6 % (27.0-41.0); MEAN CELL VOLUME 105.1 fl (80.0-94.0); MEAN CORPUSCULAR HGB 31.7 pg (27.0-31.0); MEAN CORPUSCULAR HGB CONC 30.2 g/dl (33.0-37.0); MEAN PLATELET VOLUME 9.8 fl (9.6-12.3); MONO # 0.7 10*3/uL (0.1-1.0); MONO % 5.8 % (3.0-9.0); NEUT # 10.3 10*3/uL (2.3-7.9); NEUT % 81.5 % (47.0-73.0); PLATELET COUNT AUTOMATED 160 10*3/uL (130-400); RED BLOOD COUNT 3.15 10*6/uL (4.50-5.90); RED CELL DISTRI WIDTH 19.9 % (0-14.5); WHITE BLOOD COUNT 12.6 10*3/uL (4.8-10.8)
[2016-11-09 21:57] VITALS: BP 130/60; BP 130/80
[2016-11-09 21:59] LABS: POTASSIUM 4.3 mmol/L (3.5-5.1)
[2016-11-09 22:01] LABS: TROPONIN I 0.069 ng/ml (<0.045)
[2016-11-09 22:21] VITALS: BP 132/58
[2016-11-09 23:33] VITALS: BP 135/61
[2016-11-10] VITALS: BP 135/61
[2016-11-10 06:49] LABS: HEMATOCRIT 31.2 % (42.0-52.0); HEMOGLOBIN 9.4 g/dl (14.0-18.0); MEAN CELL VOLUME 104.7 fl (80.0-94.0); MEAN CORPUSCULAR HGB 31.5 pg (27.0-31.0); MEAN CORPUSCULAR HGB CONC 30.1 g/dl (33.0-37.0); PLATELET COUNT AUTOMATED 141 10*3/uL (130-400); RED BLOOD COUNT 2.98 10*6/uL (4.50-5.90); RED CELL DISTRI WIDTH 19.9 % (0-14.5); WHITE BLOOD COUNT 8.8 10*3/uL (4.8-10.8)
[2016-11-10 07:11] LABS: INTERNATIONAL NORM RATIO 1.6 (2.0-3.5); PROTHROMBIN TIME 16.9 SECONDS (9.0-12.4)
[2016-11-10 07:15] LABS: POTASSIUM 4.6 mmol/L (3.5-5.1)
[2016-11-10 07:42] LABS: LYMPHOCYTE # 0.1 10*3/uL (1.3-4.4); NEUTROPHIL # 8.7 10*3/uL (2.3-7.9); NEUTROPHILS 99 % (47-73); OVALOCYTES MODERATE; PLATELET SUFFICIENCY NORMAL (NORMAL); POLYCHROMASIA SLIGHT; SCHISTOCYTES FEW; TOTAL CELLS COUNTED 100 #CELLS
[2016-11-10 08:00] VITALS: BP 143/55
[2016-11-10 12:00] VITALS: BP 120/45
[2016-11-10 16:00] VITALS: BP 90/50
[2016-11-10 20:00] VITALS: BP 145/49
[2016-11-11] VITALS (12 sets, daily range): BP systolic 100–136; BP diastolic 34–81
[2016-11-11 07:04] LABS: BASO % 0.1 % (0.0-1.0); EOS # 0.1 10*3/uL (0.0-0.4); EOS % 0.5 % (1.0-4.0); HEMATOCRIT 31.2 % (42.0-52.0); HEMOGLOBIN 9.4 g/dl (14.0-18.0); IG # 0.1 10*3/uL (0.0-0.1); LYMPH # 1.3 10*3/uL (1.3-4.4); LYMPH % 10.3 % (27.0-41.0); MEAN CORPUSCULAR HGB 31.3 pg (27.0-31.0); MEAN CORPUSCULAR HGB CONC 30.1 g/dl (33.0-37.0); MEAN PLATELET VOLUME 9.3 fl (9.6-12.3); MONO # 0.7 10*3/uL (0.1-1.0); MONO % 5.7 % (3.0-9.0); NEUT # 10.4 10*3/uL (2.3-7.9); NEUT % 82.9 % (47.0-73.0); PLATELET COUNT AUTOMATED 131 10*3/uL (130-400); RED CELL DISTRI WIDTH 20.4 % (0-14.5); WHITE BLOOD COUNT 12.6 10*3/uL (4.8-10.8)
[2016-11-11 07:33] LABS: POTASSIUM 4.1 mmol/L (3.5-5.1)
[2016-11-11 07:36] LABS: INTERNATIONAL NORM RATIO 1.8 (2.0-3.5); PROTHROMBIN TIME 20.1 SECONDS (9.0-12.4)
[2016-11-12] VITALS (11 sets, daily range): BP systolic 111–135; BP diastolic 52–70
[2016-11-12 06:29] LABS: BASO % 0.3 % (0.0-1.0); EOS # 0.3 10*3/uL (0.0-0.4); EOS % 3.9 % (1.0-4.0); HEMATOCRIT 31.9 % (42.0-52.0); HEMOGLOBIN 9.5 g/dl (14.0-18.0); LYMPH # 1.1 10*3/uL (1.3-4.4); MEAN CELL VOLUME 104.9 fl (80.0-94.0); MEAN CORPUSCULAR HGB 31.3 pg (27.0-31.0); MEAN CORPUSCULAR HGB CONC 29.8 g/dl (33.0-37.0); MEAN PLATELET VOLUME 9.7 fl (9.6-12.3); MONO # 0.4 10*3/uL (0.1-1.0); MONO % 6.3 % (3.0-9.0); NEUT # 4.9 10*3/uL (2.3-7.9); NEUT % 72.9 % (47.0-73.0); PLATELET COUNT AUTOMATED 124 10*3/uL (130-400); RED BLOOD COUNT 3.04 10*6/uL (4.50-5.90); RED CELL DISTRI WIDTH 20.3 % (0-14.5); WHITE BLOOD COUNT 6.7 10*3/uL (4.8-10.8)
[2016-11-12 07:03] LABS: POTASSIUM 4.2 mmol/L (3.5-5.1)
[2016-11-12 07:06] LABS: INTERNATIONAL NORM RATIO 1.9 (2.0-3.5); PROTHROMBIN TIME 21.3 SECONDS (9.0-12.4)
[2016-11-13] VITALS (9 sets, daily range): BP systolic 118–152; BP diastolic 44–90
[2016-11-13 06:46] LABS: INTERNATIONAL NORM RATIO 2.1 (2.0-3.5); PROTHROMBIN TIME 23.1 SECONDS (9.0-12.4)
[2016-11-13] MEDS ORDERED: MORPHINE S20 MG/1 ML PO (17:14)
[2016-11-13] MEDS ORDERED: ATIVAN ORAL C2 MG/ML PO (17:14)
== END 2016-11-13 21:07 | disposition other institution (70) | DRG 291 ==
LOC: ED 21:11 → EDHOLD 22:07 → 4E 22:07
PROVIDERS: Internal Medicine; Student in an Organized Health Care Education/Training Program
PROC: 02HV33Z Insertion of Infusion Device into Superior Vena Cava, Percutaneous Approach (ICD-10-PCS; principal; 2016-11-09)
DX: I13.0 Hypertensive heart and chronic kidney disease with heart failure and stage 1 through stage 4 chronic kidney disease, or unspecified chronic kidney disease (principal); I50.23 Acute on chronic systolic (congestive) heart failure; J96.21 Acute and chronic respiratory failure with hypoxia; N17.9 Acute kidney failure, unspecified; E11.21 Type 2 diabetes mellitus with diabetic nephropathy; R62.7 Adult failure to thrive; I25.5 Ischemic cardiomyopathy; L97.529 Non-pressure chronic ulcer of other part of left foot with unspecified severity; E11.51 Type 2 diabetes mellitus with diabetic peripheral angiopathy without gangrene; E11.22 Type 2 diabetes mellitus with diabetic chronic kidney disease; N18.3 Chronic kidney disease, stage 3 (moderate); J44.9 Chronic obstructive pulmonary disease, unspecified; I48.2 Chronic atrial fibrillation; M1A.9XX0 Chronic gout, unspecified, without tophus (tophi); E78.2 Mixed hyperlipidemia; R79.1 Abnormal coagulation profile; D63.8 Anemia in other chronic diseases classified elsewhere; Z66 Do not resuscitate; Z51.5 Encounter for palliative care; Z88.0 Allergy status to penicillin; Z88.8 Allergy status to other drugs, medicaments and biological substances; Z99.81 Dependence on supplemental oxygen; Z87.01 Personal history of pneumonia (recurrent); Z95.0 Presence of cardiac pacemaker; Z98.61 Coronary angioplasty status; Z98.49 Cataract extraction status, unspecified eye; Z80.9 Family history of malignant neoplasm, unspecified; Z82.3 Family history of stroke; Z74.01 Bed confinement status; Z79.01 Long term (current) use of anticoagulants

== ENCOUNTER → 2016-12-20 | Outpatient (CLI) | payer MEDICARE ==
[~2016-12-20] MED LIST changes: +ATIVAN ORAL C2 MG/ML PO; +MORPHINE S20 MG/1 ML PO; +PERCOCET 325 MG1 TA5 PO; +REMERON15 M2 PO; +XANAX0.25 MG PO
[2016-12-20 11:00] VITALS: BP 83/41
== END | disposition home or self-care (01) ==
LOC: LAB 03:31 → INJECTION 11:00
DX: N18.3 Chronic kidney disease, stage 3 (moderate) (principal); D63.1 Anemia in chronic kidney disease

== ENCOUNTER → 2016-12-28 | Outpatient (CLI) | payer MEDICARE ==
--- NOTE | ~2016-12-28 | PR ---
[place], [place] PROGRESS NOTE NAME: ARIANNA MUSTAFA [facility] #: [id number] UNIT #: [id number] ROOM: DOCTOR: INDIO HAMILTONCARLTON BIRTHDATE: [birth year] DOS: 12/28/2016 SUBJECTIVE: The patient has not been seen at the wound center in quite some time. He had been in a fpc facility. Previously, he was seen for the distal left great toe ulceration arterial in nature. The patient is nonbypassable and no vascular intervention can be undertaken because of his very low ability to have arterial flow, the area was just to be watched and monitored, no aggressive therapy was planned. The patient is here today with new wounds again he was in a fpc facility. There were some areas of pressure on a fall that he had sustained and now he has a new arterial wounds on both lower extremities. Today right malleolar region has arterial wound that eschar covered at 2.5 cm x 2.2 cm x 0.1 cm. Left great toe has an anterior wound that eschar covered at 1.5 cm x 1.5 cm x 0.1 cm. Left foot medial ulcer is arterial in nature 1 cm x 1.3 cm x 0.1 cm and the left toe between third and fourth toe webspace, there is an open ulcer of 1.5 cm x 1 cm x 0.1 cm and all the wounds are eschar covered. There are dry and stable at this time. There is a lot of devitalized tissue that is actually starting to lift up around right calcaneal wound. This area was debrided through subcu to remove devitalized necrotic tissue. The patient tolerated the procedure well. No bleeding was noted at this time. No signs of active or acute infection were noted currently. The left great toe distally had some accumulation of dried debris and necrosis was debrided as well. The patient tolerated that procedure also and no bleeding was noted in that region. IMPRESSION: Arterial wounds, bilateral lower extremities. PLAN: 1. Evaluate. 2. Debridement was performed as described above. We will paint the areas with Betadine and a dry bulky dressing to pad and protect 3 times a week. We will send these orders to [facility]. The patient does have a PRAFO boot that he was using in the fpc center. He has not been using at home. I recommend using it on the right foot to offload the pressure area of the right heel. The patient will be seen at the Wound Care Center in 2 weeks for followup of these complaints. [place], [place] PROGRESS NOTE NAME: ARIANNA MUSTAFA UNIT #: [id number] ROOM: DOCTOR: CARLTON BORJAS DPM BIRTHDATE: [birth year] CARLTON BORJAS DPM CM:PNTASHA [id number] CARLTON BORJAS DPM 12/29/16 1436 interface
== END | disposition home or self-care (01) ==
LOC: WOUNDCARE 02:45
DX: I70.245 Atherosclerosis of native arteries of left leg with ulceration of other part of foot (principal); L97.521 Non-pressure chronic ulcer of other part of left foot limited to breakdown of skin; L97.411 Non-pressure chronic ulcer of right heel and midfoot limited to breakdown of skin

== ENCOUNTER → 2017-01-03 | Outpatient (CLI) | payer MEDICARE | END | disposition home or self-care (01) | LOC: INJECTION 10:35 | DX: N18.3 Chronic kidney disease, stage 3 (moderate) (principal); D64.9 Anemia, unspecified ==

== ENCOUNTER → 2017-01-18 | Outpatient (CLI) | payer MEDICARE ==
--- NOTE | ~2017-01-18 | PR ---
[place], [place] PROGRESS NOTE NAME[id number] UN[facility] #: [id number] ROOM: DOCTOR: INDIO HAMILTON,CARLTON BIRTHDATE: [birth year] DOS: 01/18/2017 SUBJECTIVE: The patient is seen for right lower extremity and left lower extremity arterial wounds. He was seen last by Dr. Wren who did a debridement and placed him on Santyl, did a culture and x-rays. X-rays were negative. Culture was negative. The patient is still on doxycycline, which he only has a couple days' worth and he is to finish. Home health care has been using the Santyl between the toes. PHYSICAL EXAMINATION: Today, upon exam, the toe areas are very macerated and wet and there is exposed bone coming out of the fourth toe plantarly. The remaining wounds are dry. Right calcaneal ulcer is 2 cm x 3cm x 0.1 cm. Left toe is 1.2 cm x 1.2 cm x 0.1 cm. Left medial foot is 0.5 x 0.8 x 0.1 cm. The third web space is 1.5 cm x 1 x 0.1 cm. This one is macerated and has some debris, which was debrided through to dermis. The fourth web space has a macerated area and open wound of 1 x 1.7 x 0.1. Left fourth toe medial has a dry wound at 0.3 x 0.5 x 0.1. IMPRESSION: Arterial wounds as described, unfortunately without any availability to vascular intervention. PLAN: 1. Evaluate. 2. We will switch all wounds to Betadine ointment. The web spaces can have Maxorb and foam in between to help with separation and getting them dry. I would like to see the patient back in 2 weeks for followup of this complaint. CARLTON BORJAS DPM CM:PNTRANS [phone] CARLTON BORJAS DPM 01/18/172042 interface
== END ==
LOC: WOUNDCARE 04:04
DX: E11.621 Type 2 diabetes mellitus with foot ulcer (principal); L97.521 Non-pressure chronic ulcer of other part of left foot limited to breakdown of skin; L89.610 Pressure ulcer of right heel, unstageable; I70.262 Atherosclerosis of native arteries of extremities with gangrene, left leg

== ENCOUNTER → 2017-02-07 | Outpatient (CLI) | payer MEDICARE ==
[2017-02-07 14:00] VITALS: BP 155/70
[2017-02-07 14:23] LABS: HEMATOCRIT 31.5 % (42.0-52.0); HEMOGLOBIN 9.7 g/dl (14.0-18.0)
[2017-02-07 14:51] LABS: POTASSIUM 4.2 mmol/L (3.5-5.1)
== END | disposition home or self-care (01) ==
LOC: LAB 13:20 → US 14:00
PROVIDERS: Internal Medicine Nephrology
DX: N18.3 Chronic kidney disease, stage 3 (moderate) (principal); E55.9 Vitamin D deficiency, unspecified; N25.81 Secondary hyperparathyroidism of renal origin; D63.1 Anemia in chronic kidney disease; N26.1 Atrophy of kidney (terminal)

== ENCOUNTER → 2017-02-11 | Outpatient (CLI) | payer MEDICARE | LOC: WOUNDCARE 02:48 | DX: I70.263 Atherosclerosis of native arteries of extremities with gangrene, bilateral legs (principal); E11.621 Type 2 diabetes mellitus with foot ulcer; L97.811 Non-pressure chronic ulcer of other part of right lower leg limited to breakdown of skin; L97.821 Non-pressure chronic ulcer of other part of left lower leg limited to breakdown of skin; E11.622 Type 2 diabetes mellitus with other skin ulcer; L89.610 Pressure ulcer of right heel, unstageable ==

== ENCOUNTER 2017-02-20 14:12 | Inpatient (IN) | payer MEDICARE ==
[~2017-02-20] VITALS: Ht 182.8 cm; Wt 65.8 kg
--- NOTE | ~2017-02-20 | CON ---
[place], [place] REPORT OF CONSULTATION NAME: ARIANNA MUSTAFA [facility] #: [id number] UNIT #: [id number] ROOM: 522 DOCTOR: JOSTIN HAMILTONDONIS J BIRTHDATE: [birth year] DOS: 02/22/2017 CHIEF COMPLAINT: The patient presents with chief complaint of ulcerations of both lower extremities. HISTORY OF PRESENT ILLNESS: The patient's history was achieved via his . The patient was seen last week by Dr. Carlson to [facility] and has been having home nursing apply Betadine and dressings daily to the wounds of both feet. The patient had arterial intervention performed by Dr. Spence last year and has seen numerous vascular surgeons and apparently no further improvement could be obtained beyond the patient's current status. PAST MEDICAL HISTORY: The patient has a past medical history of failure to thrive, chronic respiratory failure with advanced COPD on home oxygen, chronic systolic CHF, CAD, chronic kidney disease stage 3, PVD and wounds, mixed with hyperlipidemia, type 2 diabetes, chronic gouty arthritis, coronary artery disease, COPD, urinary tract infection, gastroenteritis, history of osteomyelitis of toe of left foot, acute azotemia, chronic Afib, anemia, kidney disease, renal insufficiency; contusion, left hip, left shoulder; dehydration, history of falls, fracture of thumb, gout, pneumonia, hyperglycemia, hypoglycemia, inability to ambulate due to ankle and foot, malaise and fatigue, metabolic encephalopathy, multiple contusions, normocytic anemia, chronic pulmonary vascular congestion, history of sepsis, urinary retention. ALLERGIES: Allergies to PENICILLIN and PREDNISONE. PHYSICAL EXAMINATION: Lower extremity examination, pedal pulses nonpalpable. Bilateral lower extremity, there are ulcerations with eschar noted to the medial first left MPJ. The distal left hallux and medial fifth left toe. Additionally, ulcerations noted to the lateral aspect of the first right toe. No signs of abscess, no signs of cellulitis, no signs of acute drainage. ASSESSMENT: Diabetic ulcerations, bilateral lower extremity. PLAN: Evaluation and management discussed with the patient's due to the fact he has been seen at the [facility] with Dr. Carlson. We will discontinue the same orders with Betadine and gauze dressings daily and interdigital gauze dressing to prevent pressure. We will defer vascular studies due to the patient's history at this time. We will follow the patient inhouse until he is discharged to return with Dr. Carlson to [facility] Care Center. [place], [place] REPORT OF CONSULTATION NAME: ARIANNA MUSTAFA UNIT #: [id number] ROOM: 522 DOCTOR: DONIS FRANKEL DPM BIRTHDATE: [birth year] DONIS FRANKEL DPM CM:CONSTR:REPORT OF CONSULTATION 1224 02/22/17 1310 interface
--- NOTE | ~2017-02-20 | PR ---
[place], [place] PROGRESS NOTE NAME: ARIANNA MUSTAFA [facility] #: [id number] UNIT #: [id number] ROOM: 522 DOCTOR: JAYLON MUÑOZ MD BIRTHDATE: [birth year] DOS: 02/22/2017 SUBJECTIVE: The patient is awake, alert, mostly oriented, without any significant complaints. OBJECTIVE: VITAL SIGNS: Blood pressure 102/58, heart rate is 74 beats per minute, breathing 16 times per minute, temperature 98 degrees Fahrenheit. GENERAL: The patient has generalized emaciation and weakness with bilateral toe ulcers on both feet. IMPRESSION: 1. The patient with bilateral ischemic toe ulcers and diabetic foot ulcers, being treated with Betadine dressings and Dr. ____ the foot doctor is following. The patient also followed by the wound center as an outpatient. 2. Coagulopathy with elevated INR, still high at 4.1. Coumadin on hold. 3. Chronic kidney disease stage 4, being followed by Nephrology. 4. Hypokalemia. Potassium replaced by Nephrology. 5. Anemia of chronic disease and renal failure. The patient is on Aranesp Dr. Garcia, the orthodontic assistant. 6. Urinary tract infection with resistant Escherichia coli, being treated with meropenem. 7. Systolic type congestive heart failure, chronic, compensated. 8. Centrilobular emphysema with chronic shortness of breath and chronic respiratory failure. 9. Overall, the patient has very poor health and has poor long-term prognosis with severe protein calorie malnutrition and albumin level of 1.5, total protein of 4.7. I will recommend palliative care for this patient. JAYLON MUÑOZ MD CM:PNTRANS [phone] JAYLON MUÑOZ MD 02/22/17 2336 interface
--- NOTE | ~2017-02-20 | DS ---
[place], [place] DISCHARGE SUMMARY NAME: ARIANNA MUSTAFA [facility] #: [id number] UNIT #: [id number] ROOM: 522 DOCTOR: JAYLON MUÑOZ MD BIRTHDATE: [birth year] DOS: 02/23/2017 DISCHARGE DIAGNOSES: 1. Severe malnutrition, protein calorie with advanced adult failure to thrive and poor prognosis. 2. Bilateral ischemic and diabetic foot ulcers on toes of his feet bilaterally nonhealing follows up with wound care Dr. Wren. 3. Severe coagulopathy with elevated INR. The patient was unable to tolerate Coumadin, he was taking at home, I will just put him on aspirin daily, INR profoundly reduced to 2.7. 4. Advanced emphysema and chronic respiratory failure. 5. Resistant urinary tract infection and cystitis with E. coli, treated. 6. Anemia of chronic disease and kidney failure. 7. 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 8. Hypokalemia. The patient was given extra potassium supplements. 9. Systolic type congestive heart failure, chronic, compensated. 10. Coronary artery disease of [place] vessels without chest pains. 11. Chronic gouty arthritis, asymptomatic, treated with allopurinol, type 2 diabetes mellitus with reasonably controlled sugars. 12. Mixed type hyperlipidemia. 13. Severe peripheral arterial disease and peripheral vascular disease with nonhealing wounds. HOSPITAL COURSE: The patient presented to the Emergency Department at [facility] with feeling unwell and INR was elevated at 8 and he had signs of urine infection. After admission, the patient grew E. coli, which were resistant and were treated with IV meropenem. The patient achieved maximum benefit from this admission and apparently he is allowed 3 days of stay at the hospital by the insurance. The patient has improved and will be discharged to home on Macrobid. Adult failure to thrive, severe arterial peripheral vascular disease with ischemic and diabetic toe ulcer, which are not healing despite of being followed by wound care. During his stay at the hospital wound care nurse followed him, but Dr. Wren the wound care doctor was on vacation and was unable to see the patient, but a follow up as an outpatient will be arranged again. The toes were evaluated by podiatry and recommended treatment with Betadine and dressings between the toes, which was performed. Adult failure to thrive with overall poor health, kidney failure, respiratory failure, congestive heart failure, COPD, peripheral arterial disease, nonhealing wound, severe protein calorie malnutrition qualifies patient for hospice care, which has been arranged and patient and the would take care of him at home have agreed. This was discussed with forensic social worker. The patient will be discharged to home and follow up with Dr. Machado, his PCP. Hypokalemia, replaced with extra potassium supplements. 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 Hypocalcemia partly corrected with severe hypoalbuminemia and then was also treated with extra potassium supplements and evaluated by Nephrology, parathyroid levels are appropriately elevated. The patient was started on calcium supplements. LABORATORY DATA: Parathyroid hormone elevated to 165. Vitamin D level is normal. INR improved to 2.7. Coumadin stopped, BUN and creatinine 53 and 2.5. Potassium level at 3.3 and the patient is being given extra potassium, calcium level had improved to 6.8, but after correction for hypoalbuminemia the patient's calcium level is pretty close to normal. Urine cultures grew resistant E. coli. DISCHARGE MANAGEMENT: Ecotrin 81 mg a day, digoxin 125 mcg every other day. Follow up with wound center hospice consult, furosemide 20 mg a day, Citracal 5 mg 3 times a day with vitamin D, allopurinol 100 mg a day, omeprazole 20 mg a day, Flomax 0.4 mg a day, meclizine 25 mg b.i.d., gabapentin 300 mg b.i.d., Coreg 3.125 mg b.i.d., Lipitor 20 mg a day, Symbicort twice a day, oxycodone 1 tablet b.i.d. p.r.n. for pain, DuoNeb every 6 hours as needed for shortness of breath, Aranesp to be decided by Nephrology. Follow with Dr. Demetria Machado, his PCP within the week if possible for the family to bring him in. JAYLON MUÑOZ MD CM:ITNO [id number] JAYLON MUÑOZ MD 02/23/17 1146 interface
[2017-02-20 14:26] VITALS: BP 101/45
[2017-02-20 14:42] LABS: BILIRUBIN NEGATIVE (NEGATIVE); BLOOD TRACE-LYSED (NEGATIVE); CLARITY SL CLOUDY (CLEAR); COLOR YELLOW (YELLOW); GLUCOSE NEGATIVE (NEGATIVE); KETONE NEGATIVE (NEGATIVE); LEUKO ESTERASE 3+ (NEGATIVE); NITRITE POSITIVE (NEGATIVE); PH 5.5 (5.0-9.0); PROTEIN NEGATIVE (NEGATIVE); SPECIFIC GRAVITY 1.015 (1.005-1.030); UROBILINOGEN 0.2 E.U./dl (0.2-1.0)
[2017-02-20 14:53] LABS: BACTERIA 3+; URINE REFLEX COMMENT YES (NO); WBC TNTC wbc/hpf (0-5)
[2017-02-20 15:01] LABS: BASO % 0.4 % (0.0-1.0); EOS # 0.3 10*3/uL (0.0-0.4); EOS % 3.6 % (1.0-4.0); HEMATOCRIT 33.1 % (42.0-52.0); HEMOGLOBIN 10.7 g/dl (14.0-18.0); LYMPH # 1.5 10*3/uL (1.3-4.4); LYMPH % 20.8 % (27.0-41.0); MEAN CELL VOLUME 93.8 fl (80.0-94.0); MEAN CORPUSCULAR HGB 30.3 pg (27.0-31.0); MEAN CORPUSCULAR HGB CONC 32.3 g/dl (33.0-37.0); MONO # 0.6 10*3/uL (0.1-1.0); MONO % 7.9 % (3.0-9.0); NEUT # 4.8 10*3/uL (2.3-7.9); NEUT % 66.9 % (47.0-73.0); PLATELET COUNT AUTOMATED 159 10*3/uL (130-400); RED BLOOD COUNT 3.53 10*6/uL (4.50-5.90); RED CELL DISTRI WIDTH 22.8 % (0-14.5); WHITE BLOOD COUNT 7.2 10*3/uL (4.8-10.8)
[2017-02-20 15:15] LABS: ALBUMIN 1.5 gm/dl (3.1-4.5); BILIRUBIN, TOTAL 0.5 mg/dl (0.2-1.0); MAGNESIUM 1.6 mg/dL (1.5-2.1); TOTAL PROTEIN 4.7 gm/dL (6.4-8.2)
[2017-02-20 15:17] LABS: PROTHROMBIN TIME 68.1 SECONDS (9.0-12.4)
[2017-02-20 15:22] LABS: INTERNATIONAL NORM RATIO 5.7 (2.0-3.5)
[2017-02-20] MEDS ORDERED: LIPITOR20 MG PO (15:28)
[2017-02-20] MEDS ORDERED: PRILOSEC20 M1 PO (15:28)
[2017-02-20] MEDS ORDERED: FLOMAX0.4 MG PO (15:28)
[2017-02-20] MEDS ORDERED: Meclizine25 MG PO (15:28)
[2017-02-20] MEDS ORDERED: SYMBICORT1 AE1 INH (15:28)
[2017-02-20] MEDS ORDERED: LANOXIN0.125 MG PO (15:29)
[2017-02-20] MEDS ORDERED: COREG3.125 MG PO (15:29)
[2017-02-20] MEDS ORDERED: ZYLOPRIM100 MG PO (15:29)
[2017-02-20] MEDS ORDERED: CENTRUM SILVER1 EACH PO (15:30)
[2017-02-20] MEDS ORDERED: B COMPLETE1 EACH PO (15:30)
[2017-02-20] MEDS ORDERED: POTASSIUM CHLO10 ME5 PO (15:31)
[2017-02-20] MEDS ORDERED: LASIX20 MG PO ×2 (15:31→15:36)
[2017-02-20] MEDS ORDERED: PERCOCET 325 MG1 TA5 PO (15:32)
[2017-02-20] MEDS ORDERED: NEURONTIN300 MG PO (15:32)
[2017-02-20] MEDS ORDERED: VITAMIN D32000 UNI1 PO (15:32)
[2017-02-20] MEDS ORDERED: CALCIUM600 M2 PO (15:33)
[2017-02-20] MEDS ORDERED: DUONEB 3 MG/3 ML3 M1 INH (15:33)
[2017-02-20 16:02] VITALS: BP 90/46
[2017-02-20 16:30] VITALS: BP 97/51
[2017-02-20 20:00] VITALS: BP 115/62
[2017-02-21] VITALS: BP 110/46
[2017-02-21 06:08] LABS: BASO % 0.4 % (0.0-1.0); EOS # 0.2 10*3/uL (0.0-0.4); EOS % 2.4 % (1.0-4.0); HEMATOCRIT 30.7 % (42.0-52.0); HEMOGLOBIN 10.1 g/dl (14.0-18.0); LYMPH # 1.6 10*3/uL (1.3-4.4); LYMPH % 20.4 % (27.0-41.0); MEAN CELL VOLUME 90.8 fl (80.0-94.0); MEAN CORPUSCULAR HGB 29.9 pg (27.0-31.0); MEAN CORPUSCULAR HGB CONC 32.9 g/dl (33.0-37.0); MEAN PLATELET VOLUME 10.6 fl (9.6-12.3); MONO # 0.7 10*3/uL (0.1-1.0); MONO % 8.6 % (3.0-9.0); NEUT # 5.3 10*3/uL (2.3-7.9); NEUT % 67.8 % (47.0-73.0); PLATELET COUNT AUTOMATED 157 10*3/uL (130-400); RED BLOOD COUNT 3.38 10*6/uL (4.50-5.90); RED CELL DISTRI WIDTH 22.5 % (0-14.5); WHITE BLOOD COUNT 7.8 10*3/uL (4.8-10.8)
[2017-02-21 06:23] LABS: POTASSIUM 3.6 mmol/L (3.5-5.1)
[2017-02-21 06:33] LABS: PROTHROMBIN TIME 72.6 SECONDS (9.0-12.4)
[2017-02-21 06:45] LABS: INTERNATIONAL NORM RATIO 6.1 (2.0-3.5)
[2017-02-21 12:00] VITALS: BP 118/66; BP 128/70
[2017-02-21 16:00] VITALS: BP 102/47
[2017-02-21 20:00] VITALS: BP 98/46
[2017-02-21 20:04] VITALS: BP 98/46
[2017-02-22] VITALS: BP 98/52
[2017-02-22 06:26] LABS: POTASSIUM 3.2 mmol/L (3.5-5.1)
[2017-02-22 07:08] LABS: INTERNATIONAL NORM RATIO 4.1 (2.0-3.5); PROTHROMBIN TIME 47.7 SECONDS (9.0-12.4)
[2017-02-22 08:00] VITALS: BP 102/58
[2017-02-22 12:00] VITALS: BP 112/62
[2017-02-22 16:00] VITALS: BP 80/44
[2017-02-22 20:00] VITALS: BP 111/62
[2017-02-23] VITALS: BP 106/63
[2017-02-23 06:30] LABS: ALBUMIN 1.2 gm/dl (3.1-4.5); MAGNESIUM 1.5 mg/dL (1.5-2.1); PHOSPHOROUS 3.2 mg/dL (2.5-4.9); POTASSIUM 3.3 mmol/L (3.5-5.1)
[2017-02-23 06:32] LABS: INTERNATIONAL NORM RATIO 2.7 (2.0-3.5); PROTHROMBIN TIME 30.5 SECONDS (9.0-12.4)
[2017-02-23 07:34] LABS: VITAMIN D, 25-HYDROXY 37.6 ng/mL (30-100)
[2017-02-23 07:35] LABS: PTH INTACT 165.2 pg/mL (14.0-72.0)
[2017-02-23 08:00] VITALS: BP 90/50
[2017-02-23] MEDS ORDERED: MACROBID100 M1 PO (10:18)
[2017-02-23] MEDS ORDERED: CITRACAL + D M1 EACH PO (10:18)
[2017-02-23] MEDS ORDERED: BAYER ASPIRIN C81 MG PO (10:34)
[2017-02-23 12:00] VITALS: BP 112/54
[2017-02-23 16:00] VITALS: BP 98/55
== END 2017-02-23 17:10 | disposition home health service (06) | DRG 689 ==
LOC: ED 14:12 → EDHOLD 15:45 → 5E 15:45
PROVIDERS: Internal Medicine; Internal Medicine Nephrology; Nurse Practitioner Family
DX: N30.90 Cystitis, unspecified without hematuria (principal); E43 Unspecified severe protein-calorie malnutrition; N18.4 Chronic kidney disease, stage 4 (severe); J96.10 Chronic respiratory failure, unspecified whether with hypoxia or hypercapnia; D68.9 Coagulation defect, unspecified; I50.22 Chronic systolic (congestive) heart failure; E11.22 Type 2 diabetes mellitus with diabetic chronic kidney disease; I13.0 Hypertensive heart and chronic kidney disease with heart failure and stage 1 through stage 4 chronic kidney disease, or unspecified chronic kidney disease; L97.429 Non-pressure chronic ulcer of left heel and midfoot with unspecified severity; L97.419 Non-pressure chronic ulcer of right heel and midfoot with unspecified severity; Z68.1 Body mass index [BMI] 19.9 or less, adult; Z66 Do not resuscitate; E11.621 Type 2 diabetes mellitus with foot ulcer; J43.9 Emphysema, unspecified; R62.7 Adult failure to thrive; B96.20 Unspecified Escherichia coli [E. coli] as the cause of diseases classified elsewhere; D63.1 Anemia in chronic kidney disease; E87.6 Hypokalemia; I25.10 Atherosclerotic heart disease of native coronary artery without angina pectoris; M1A.9XX0 Chronic gout, unspecified, without tophus (tophi); Z51.5 Encounter for palliative care; E78.2 Mixed hyperlipidemia; D64.9 Anemia, unspecified; I48.2 Chronic atrial fibrillation; E11.51 Type 2 diabetes mellitus with diabetic peripheral angiopathy without gangrene; Z88.0 Allergy status to penicillin; Z88.8 Allergy status to other drugs, medicaments and biological substances; Z95.0 Presence of cardiac pacemaker; Z95.818 Presence of other cardiac implants and grafts; Z98.49 Cataract extraction status, unspecified eye; Z82.3 Family history of stroke; Z80.9 Family history of malignant neoplasm, unspecified; Z99.81 Dependence on supplemental oxygen; Z87.81 Personal history of (healed) traumatic fracture; Z87.01 Personal history of pneumonia (recurrent); Z79.899 Other long term (current) drug therapy; Z91.81 History of falling

== ENCOUNTER → 2017-03-04 | Outpatient (CLI) | payer MEDICARE ==
[~2017-03-04] MED LIST changes: +BAYER ASPIRIN C81 MG PO; +CALCIUM600 M2 PO; +CITRACAL + D M1 EACH PO; +MACROBID100 M1 PO; +VITAMIN D32000 UNI1 PO
== END ==
LOC: WOUNDCARE 00:37
DX: I70.262 Atherosclerosis of native arteries of extremities with gangrene, left leg (principal); E11.621 Type 2 diabetes mellitus with foot ulcer; L97.521 Non-pressure chronic ulcer of other part of left foot limited to breakdown of skin; L89.610 Pressure ulcer of right heel, unstageable; E11.52 Type 2 diabetes mellitus with diabetic peripheral angiopathy with gangrene

== ENCOUNTER 2017-03-19 09:39 | Inpatient (IN) | payer MEDICARE ==
[~2017-03-19] VITALS: Ht 182.8 cm; Wt 73.2 kg
--- NOTE | ~2017-03-19 | CON ---
[place], [place] REPORT OF CONSULTATION NAME: ARIANNA MUSTAFA [facility] #: [id number] UNIT #: [id number] ROOM: 510 DOCTOR: ERIKA FIGUEROA MD BIRTHDATE: [birth year] DOS: 03/20/2017 CONSULTATION REQUESTED BY: Dr. Demetria Machado. REASON FOR CONSULTATION: To assess the patient for current acute respiratory problems including abnormal chest x-ray with possible pneumonia and others. HISTORY OF PRESENT ILLNESS: This is an 86-year-old white male with history of advanced cardiomyopathy. The patient has left ventricular ejection fraction less than 15% with recurrent hospitalization for the congestive heart failure and others, currently staying at [facility]. The patient has been treated for several days for the congestive heart failure, also noted anemia requiring blood transfusion as per . The patient has been noted extremely feeble on intake and fatigue. He has not been able to participate in the history at the present time. All the history has been obtained from my past known medical records on this patient, current documentation by the other physicians and the nursing staff notes as well. The patient was noted with increased shortness breath at the nursing facility. He was discharged from [facility] last . He has been admitted to the hospital on 03/19/2017. The patient has been noted with significant fatigue and tiredness as well. There was no coughing, chest pain or hemoptysis described. The patient has not been noted with symptoms of chest pain or angina. Remaining systems, the patient could not be completed because the patient's inability to participate and give me the accurate history and review of systems. PAST MEDICAL HISTORY: The patient was noted with: 1. History of advanced ischemic cardiomyopathy with a past intermittent dobutamine administration. 2. History of centrilobular emphysema. 3. Chronic hypoxic respiratory failure. 4. Recurrent pleural fluid requiring thoracentesis, chest tube insertion during his several other hospitalizations including admission at [facility]. 5. History of past pneumonia as well. 6. Generalized debility. 7. Advanced peripheral vascular disease, inoperable surgical intervention of the lower extremities. 8. Chronic wound, poor healing of the lower extremities noted intermittently. 9. Type 2 diabetes mellitus. 10. Chronic atrial fibrillation. 11. Chronic anticoagulation. 12. Diabetic foot. 13. Chronic kidney disease stage 3 known in the past. 14. Acute gouty arthritis. 15. Essential hypertension. 16. History of Meniere's disease. PAST SURGICAL HISTORY: 1. Tonsillectomy. 2. Appendectomy. [place], [place] REPORT OF CONSULTATION [id number] #: [id number] ROOM: [facility] DOCTOR: ERIKA FIGUEROA MD BIRTHDATE: [birth year] 3. Cardiac catheterization and coronary stents insertion. 4. AICD insertion. 5. T and A. 6. Hemorrhoidectomy. 7. Bilateral cataract extraction. 8. Chest tube insertion with the drainage of pleural fluid on the left side in 2016. 9. Thoracentesis bilaterally in the past done as well. SOCIAL HISTORY: The patient is , was living at home in the past, currently noted staying at the nursing facility. Tobacco use noted since teenager, has a half a pack of cigarettes per day until 04/2004. He has worked in the [employer] for several years with exposure to the dust, chemicals and possible asbestos. There was no history of alcohol or illicit drug use. FAMILY HISTORY: Father at age 8080 years old with complications related to kidney injury. The mother at the age of 71 years with complication related to the uterine cancer. MEDICATIONS: Current administered medications noted use of Lipitor, digoxin, Flomax, gabapentin, Plavix, Lyprinol, Coreg, Dulera, omeprazole, DuoNeb, Mucinex, levalbuterol, IV vancomycin, Rocephin , Aranesp every 2 weeks, Mucinex and other p.r.n. medications administration. DRUG ALLERGIES: The patient reported allergies to: 1. PREDNISONE only, but patient can take intravenous steroids. 2. PENICILLINS. PHYSICAL EXAMINATION: GENERAL: An 86-year-old male who has been currently noted very tired, fatigued and ill looking, currently lying on the bed, arousable with the vocal commands and then go to sleep after that. VITAL SIGNS: Height was noted as 6 feet, weight of 166 pounds, BMI 22.5. The patient was recorded as a normal temperature, respiratory rate 18-20, heart rate of 77-89, blood pressure 130/73-100/61. Pulse oxygen saturation noted on 4 L nasal cannula as 95%-100% saturation. HEENT: Shows loss of muscle mastication. Eyes were sunken. NECK: Supple. Elevation in JVD. CARDIOVASCULAR: S1 and S2, audible with muscle sounds. LUNGS: Absent breath sounds on the left side and severely reduced best in the right chest auscultation. There were no crackles or wheezing heard. ABDOMEN: Soft, nontender. EXTREMITIES: Shows chronic changes of the lower extremities with edema. CENTRAL NERVOUS SYSTEM: Cannot be completed at this time in the current medical situation. MUSCULOSKELETAL: No deformities. SKIN: Visible shows scattered bruising of the skin. LABORATORY DATA: CBC that was done on 03/18/2017 as an outpatient showed WBC count normal, hemoglobin 10.2, hematocrit 32.9 and platelet count were normal. [place], [place] REPORT OF CONSULTATION NAME: ARIANNA MUSTAFA UNIT #: [id number] ROOM: [facility] DOCTOR: AZAR POON MD,[facility] BIRTHDATE: [birth year] PT/INR on 03/19/2017 was noted as 2.5. The vancomycin was noted as 22.5. CT scan of the chest that was done for the patient without contrast after the previous chest x-ray, which were done as an outpatient was noted with very large right pleural fluid and complete atelectasis of left lung secondary to large pleural fluid occupying the left hemithorax. IMPRESSION: The patient had been currently noted with: 1. Acute congestive heart failure with severe systolic dysfunction, ischemic cardiomyopathy was noted longstanding. Currently noted acute worsening and progressive accumulation of pleural fluid resulting in complete atelectasis of the left lung and marked interval development of pleural fluid on the left side as well. 2. History of recurrent hospitalization over debility. 3. Anticoagulation, which has been noted previously. The INR were noted therapeutic yesterday. All these findings are less likely to be associated with acute pneumonia. PLAN OF TREATMENT: Starting the patient on intravenous diuretic therapy, holding off any anticoagulation repeating the INR, thoracentesis for symptomatic management or prognosis. The patient is considered extremely poor at this time. Consider comfort measures. The patient's course is already noted as DNR comfort care. Supportive therapy, plan of management. Discontinue antibiotic, as the patient does not have any clinical evidence of pneumonia. Supportive plan of management. Other usual medical management therapy, plan of care. Ordering the routine labs as well. Additional change in the treatment will be done based on the progression of the illness. The assessment and management have been discussed with the patient's spouse and she was agreeable for the thoracentesis after asking the patient about that. Thank you for allowing me to participate in the care of this patient. ERIKA ASKEW MD CM:CONSTR:REPORT OF CONSULTATION 1354 03/21/17 0105 interface
--- NOTE | ~2017-03-19 | WRIGHTHP ---
[place], [place] PATIENT HISTORY AND PHYSICAL EXAM NAME: ARIANNA MUSTAFA [facility] #: [id number] UNIT #: [id number] ROOM: 510 DOCTOR: SHIVA HUYNH MD BIRTHDATE: [birth year] DOS: 03/19/2017 HISTORY OF PRESENT ILLNESS: This patient is very well known to us. He was seen in the [facility] yesterday, appeared to be in extreme respiratory distress and was admitted to the hospital. The patient had been in [facility] for several days, was admitted to the [facility] on evening. The [facility] noted that the patient was starting to get short of breath. At the time of admission, a chest x-ray was ordered, which was abnormal. Comparison films were obtained from [facility] and there was no change from her previous admission, but on Tuesday morning, the patient appeared to be more short of breath and so after discussing with the patient and his , we decided to admit him to the hospital. He denies having any chest pains or palpitations this morning. He tells me that he is tired. PAST MEDICAL HISTORY: Significant for: 1. Poorly healing wounds on his lower legs. 2. Protein-calorie malnutrition, severe. 3. Severe peripheral vascular disease. 4. Chronic atrial fibrillation, unable to tolerate Coumadin. 5. COPD, chronic respiratory failure. 6. History of systolic CHF. 7. Coronary artery disease. 8. Chronic gouty arthritis. MEDICATIONS: He is currently on vancomycin and meropenem, Symbicort, breathing treatments, allopurinol, aspirin, atorvastatin, carvedilol, vitamin D, Plavix, digoxin, iron, Lasix, gabapentin, meclizine, multivitamin, Flomax, omeprazole. SOCIAL HISTORY: Nonsmoker. PHYSICAL EXAMINATION: GENERAL: He is awake and alert and oriented. VITAL SIGNS: His respiratory rate is down to 16 and is no longer in distress, pulse of 75 and irregular, temperature is 98.8, blood pressure 127/54. NECK: Supple. LUNGS: Diminished breath sounds. HEART: Irregular. ABDOMEN: Soft, nontender. EXTREMITIES: Without any edema. Eschar on the right heel, which is nothing new. On the left, he has poorly healing wounds on the medial aspect of the big toe and also on the top of the big toe as well as on the third toe. These are all chronic poorly healing, dry. There is no drainage from any of these lesions. LABORATORY DATA: BMP: Glucose 87, BUN 29, creatinine 1.34. Electrolytes were normal. WBC count is 6.3, hemoglobin 10.2, hematocrit 32.9, platelets 236. Protime was 28.1. CT of the chest was done as soon as admission, shows trace pericardial effusion, PICC line in place, large left pleural effusion, moderate right pleural effusion, mucus plugging with atelectasis of the left lung, which is complete. [place], [place] PATIENT HISTORY AND PHYSICAL EXAM NAME: [facility] [id number] UN[facility] #: [id number] ROOM: 510 DOCTOR: SHIVA HUYNH MD BIRTHDATE: [birth year] ASSESSMENT AND PLAN: 1. The patient comes in with acute respiratory distress syndrome with chronic respiratory failure with CT showing evidence of bilateral pleural effusion and atelectasis of the left lung, which is complete. The patient will need a consultation with Dr. Bowen for a bronchoscopy for the mucus plug removal and thoracentesis for pleural effusion. Dr. Bowen has been consulted. IV antibiotics to be continued here. 2. Chronic poorly healing wounds with significant peripheral vascular disease. Continue supportive and symptomatic care. 3. Chronic renal insufficiency. Kidney functions not to bad for this patient. His GFR seems better than the last few admissions. 4. Chronic atrial fibrillation. The patient is no longer a candidate for Coumadin. Somehow the protime still seems elevated. He most likely was getting Coumadin in the outlying hospital, so right now he is only on Plavix. SHIVA HUYNH MD CM:HISPHYS:PATIENT HISTORY AND PHYSICAL EXAMINATION [id number] SHIVA HUYNH MD 03/20/17929 interface
[2017-03-19 09:08] LABS: INTERNATIONAL NORM RATIO 2.5 (2.0-3.5)
[~2017-03-19 09:39] MED LIST changes: +Percocet 325 MG1 TAB PO
[2017-03-19 10:00] VITALS: BP 115/65
[2017-03-19] MEDS ORDERED: INVANZ1 GM/50 ML IV (10:51)
[2017-03-19] MEDS ORDERED: FEOSOL325 MG PO (10:52)
[2017-03-19] MEDS ORDERED: PLAVIX75 M1 PO (10:54)
--- NOTE | 2017-03-19 10:55 | NUR ---
MEDS REVIEWED AND UPDATED PER POLICY.
--- NOTE | 2017-03-19 11:17 | NUR ---
[facility] 86, admitted to , under the services of SHIVA Mueller MD with a diagnosis of CHF. Chief complaint is SOB. Patient arrived via bed from [place]. Monitor applied. Initial assessment completed. Vital signs taken and recorded. SHIVA MUELLER MD notified of admission to the unit. Orders received. See assessment for past medical history, medications and allergies. Patient and/or family oriented to unit. [facility]. Clothing/patient valuable form completed. NILESH LEAL
--- NOTE | 2017-03-19 11:26 | NUR ---
DR. ASKEW NOTIFIED OF CONSULT.
[2017-03-19 12:06] VITALS: BP 114/53
[2017-03-19 16:00] VITALS: BP 128/66
[2017-03-19 20:00] VITALS: BP 100/61
[2017-03-20] VITALS: BP 127/54
--- NOTE | 2017-03-20 07:45 | NUR ---
Rested off and on through the night. Harsh, moist cough noted. Dr. Machado in and looked at coccyx, okay with 4x4 and opsite to keep clean d/t incontinence of stool. Will continue to monitor.
[2017-03-20 08:00] VITALS: BP 130/73
--- NOTE | 2017-03-20 08:15 | NUR ---
DR HUYNH IN TO SEE PT. SEE SHIFT ASSESSMENT.
--- NOTE | 2017-03-20 11:48 | NUR ---
DR ASKEW IN TO SEE PT.
[2017-03-20 12:00] VITALS: BP 112/58
--- NOTE | 2017-03-20 13:45 | NUR ---
CALLED TO PTS ROOM, SHALLOW RESPIRATIONS, SPO2 DECREASED. ATTEMPTED TO SUCTION WITHOUT SUCCESS. STAT RESPIRATORY TX. SISTER IN LAW JORJE BUI AT BEDSIDE & CALLED PTS .
--- NOTE | 2017-03-20 13:57 | NUR ---
CEASED BREATHING, NO RESPIRATIONS. & DTR AT BEDSIDE.
--- NOTE | 2017-03-20 14:05 | NUR ---
JAMAAL MCCAULEY, SHIFT DIRECTOR & DR HUYNH NOTIFIED OF .
--- NOTE | 2017-03-20 14:13 | NUR ---
[employer] NOTIFIED. SEE DOCUMENTATION.
--- NOTE | 2017-03-20 14:13 | NUR ---
DR ASKEW NOTIFIED OF .
--- NOTE | 2017-03-20 16:40 | NUR ---
DISCHARGED TO [facility] AT 'S REQUEST.
== END 2017-03-20 16:40 | disposition expired | DRG 291 ==
LOC: 5E 09:39
PROVIDERS: ADMIT Internal Medicine
DX: I13.0 Hypertensive heart and chronic kidney disease with heart failure and stage 1 through stage 4 chronic kidney disease, or unspecified chronic kidney disease (principal); I50.21 Acute systolic (congestive) heart failure; J18.9 Pneumonia, unspecified organism; J96.10 Chronic respiratory failure, unspecified whether with hypoxia or hypercapnia; E11.51 Type 2 diabetes mellitus with diabetic peripheral angiopathy without gangrene; J44.0 Chronic obstructive pulmonary disease with (acute) lower respiratory infection; E11.22 Type 2 diabetes mellitus with diabetic chronic kidney disease; J98.11 Atelectasis; Z66 Do not resuscitate; I48.2 Chronic atrial fibrillation; M1A.9XX0 Chronic gout, unspecified, without tophus (tophi); I25.10 Atherosclerotic heart disease of native coronary artery without angina pectoris; R53.83 Other fatigue; I25.5 Ischemic cardiomyopathy; R53.81 Other malaise; Z51.5 Encounter for palliative care; N18.3 Chronic kidney disease, stage 3 (moderate); H81.09 Meniere's disease, unspecified ear; Z90.49 Acquired absence of other specified parts of digestive tract; Z95.5 Presence of coronary angioplasty implant and graft; Z95.810 Presence of automatic (implantable) cardiac defibrillator; Z98.42 Cataract extraction status, left eye; Z98.41 Cataract extraction status, right eye; Z80.49 Family history of malignant neoplasm of other genital organs; Z84.1 Family history of disorders of kidney and ureter; Z79.01 Long term (current) use of anticoagulants; Z88.0 Allergy status to penicillin; Z88.8 Allergy status to other drugs, medicaments and biological substances